=== PATIENT | female | born 1940 | race Caucasian/White ===

== ENCOUNTER 2016-12-29 10:34 | Outpatient (CLI) | payer MEDICARE ==
--- NOTE | 2016-12-30 10:13 | XRAY Report ---
CHEST, PA AND LATERAL: 12/29/2016 CLINICAL HISTORY: Preop. COMPARISON: 04/18/2013 FINDINGS: Bony thorax shows minimal anterior spurring in the thoracic spine. Mediastinum is not widened. Pulmonary parenchyma demonstrates findings suspicious for a nodule within the right upper lobe. Pote ntial nodule measures 1.3 cm. This was not evident on prior PA chest from 04/18/2013. Recommend con trast-enhanced CAT scan for further evaluation. Minimal scarring is once again noted in the right upper lobe. This is unchanged as compared to prece ding exam. IMPRESSION: 1. FINDINGS ARE SUSPICIOUS FOR INTERVAL APPEARANCE SINCE 04/18/2013 OF A 1.3 CM NODULE IN THE RIGHT UPPER LOBE. RECOMMEND A CONTRAST-ENHANCED CHEST CT FOR FURTHER EVALUATION. 2. MINIMAL SCARRING IS ONCE AGAIN NOTED IN THE RIGHT UPPER LOBE, UNCHANGED. COMMENT: Patient's physician, Dr. Espino, was notified of the above findings and recommendations by Estela Wilson on 12/30/2016 at 10 a.m. JOB #: [id number] EXT JOB #:[id number]
== END 2016-12-29 10:35 | disposition home or self-care (01) ==
LOC: DI.N 10:34
PROVIDERS: ATTEND Internal Medicine
DX: R91.1 Solitary pulmonary nodule (principal); J98.4 Other disorders of lung
CPT/HCPCS: 71020

== ENCOUNTER 2017-01-11 11:06 | Outpatient (CLI) | payer MEDICARE ==
[2017-01-11] MEDS ORDERED: IOPAMIDOL-300 100 ML VIAL IVP ONE (11:38)
--- NOTE | 2017-01-11 14:55 | CT Report ---
CT CHEST WITH CONTRAST: 01/11/2017 CLINICAL INDICATION: Possible right pulmonary nodule on plain film. TECHNIQUE: Axial CT images of the chest were obtained with 100 mL Isovue-300 intravenously. COMPARISON: Chest x-ray 12/29/2016. FINDINGS: The heart and great vessels demonstrate mild atherosclerotic calcifications. No hilar or mediastinal lymphadenopathy is present. The lungs demonstrate minimal linear atelectasis at the base s. No pulmonary nodule or mass lesion is present. No pleural effusion or pneumothorax is seen. Oss eous structures demonstrate degenerative changes. Limited evaluation of upper abdominal structures d emonstrates normal adrenal glands. Diffuse fatty infiltration of the liver is noted. IMPRESSION: NO EVIDENCE OF PULMONARY NODULE OR MASS LESION. In accordance with CT protocol optimization, one or more of the following dose reduction techniques w ere utilized for this exam: automated exposure control, adjustment of mA and/or KV based on patient size, or use of iterative reconstructive technique. JOB #: [id number] EXT JOB #:[id number]
== END 2017-01-11 11:07 | disposition home or self-care (01) ==
LOC: DI 11:06
PROVIDERS: ATTEND Internal Medicine
DX: R91.8 Other nonspecific abnormal finding of lung field (principal)
CPT/HCPCS: 71260; Q9967

== ENCOUNTER 2017-02-14 06:01 | Inpatient (IN) | payer MEDICARE ==
[2017-02-14] MEDS ORDERED: ceFAZolin 2 GM/50 ML 50 ML IV ONE (06:44)
[2017-02-14] MEDS ORDERED: LACTATED RINGERS 1,000 ML IV ONE ×2 (06:55→08:47)
[2017-02-14 07:55] LABS: BASOPHILS % (AUTO) 0.5 %; EOSINOPHILS # (AUTO) 0.1 10^3/uL (0.0-0.7); EOSINOPHILS % (AUTO) 1.8 %; HCT - HEMATOCRIT 36.2 % (37.0-47.0); HGB - HEMOGLOBIN 12.2 g/dL (12.0-16.0); LYMPHOCYTES % (AUTO) 38.1 %; MEAN CORPUSCULAR HEMOGLOBIN 28.2 pg (27.0-31.0); MEAN CORPUSCULAR HGB CONC 33.7 g/dL (32.0-36.0); MEAN CORPUSCULAR VOLUME 83.5 fL (81.0-99.0); MEAN PLATELET VOLUME 7.1 fL (7.9-10.8); MONOCYTES # (AUTO) 0.6 10^3/uL (0.0-1.0); MONOCYTES % (AUTO) 7.8 %; NEUTROPHILS % (AUTO) 51.8 %; RED BLOOD COUNT 4.34 10^6/uL (4.20-5.40); RED CELL DISTRIBUTION WIDTH 15.2 % (12.0-15.0); UNCORRECTED WHITE BLOOD COUNT 7.8 x10^3/uL; WHITE BLOOD COUNT 7.8 x10^3/uL (4.8-10.8)
[2017-02-14] MEDS ORDERED: fentaNYL 100 MCG/2 ML VIAL IVP ONE (08:30)
[2017-02-14] MEDS ORDERED: ACETAMINOPHEN 1,000 MG/100 ML VIAL IV ONE (08:30)
[2017-02-14] MEDS ORDERED: PROPOFOL 200 MG/20 ML VIAL IVP ONE (08:30)
[2017-02-14] MEDS ORDERED: LIDOCAINE-PF 2% 10 ML AMP SUBQ ONE (08:30)
[2017-02-14] MEDS ORDERED: MORPHINE PF 5 MG/10 ML AMP EP ONE (08:30)
[2017-02-14] MEDS ORDERED: MIDAZOLAM 2 MG/2 ML VIAL IVP ONE (08:30)
[2017-02-14] MEDS ORDERED: METOPROLOL 5 MG/5 ML VIAL IVP ONE (08:30)
[2017-02-14] MEDS ORDERED: TRANEXAMIC ACID 1,000 MG/10 ML VIAL IV ONE (08:30)
[2017-02-14] MEDS ORDERED: EPINEPHrine 1 MG/ML AMP IVP ONE ×2 (09:36→10:50)
[2017-02-14] MEDS ORDERED: MORPHINE PF 5 MG/10 ML AMP SUBQ ONE ×2 (09:36→10:50)
[2017-02-14] MEDS ORDERED: ROPIVACAINE 0.2% PF 20 ML AMPULE SUBQ ONE ×2 (09:36→10:50)
[2017-02-14] MEDS ORDERED: KETOROLAC 15 MG/ML VIAL IVP ONE (09:36)
[2017-02-14] MEDS ORDERED: BUPIVACAINE 0.5%-EPI 1:200000 PF 30 ML VIAL SUBQ ONE ×2 (09:37→11:38)
[2017-02-14] MEDS ORDERED: KETOROLAC 30 MG/ML VIAL IVP ONE (10:50)
[2017-02-14] MEDS ORDERED: BISACODYL 5 MG TABLET PO PRN (11:54)
[2017-02-14] MEDS ORDERED: oxyCOD/ACETAMIN 5 MG/325 MG TABLET PO PRN (11:54)
[2017-02-14] MEDS ORDERED: ACETAMINOPHEN 325 MG TABLET PO PRN (11:54)
[2017-02-14] MEDS ORDERED: PROCHLORPERAZINE 10 MG/2 ML VIAL IVP PRN (11:54)
[2017-02-14] MEDS ORDERED: diphenhydrAMINE 25 MG CAPSULE PO PRN (11:54)
[2017-02-14] MEDS ORDERED: BISACODYL 10 MG SUPP PR PRN (11:54)
[2017-02-14] MEDS ORDERED: DOCUSATE SODIUM 100 MG CAPSULE PO PRN (11:54)
[2017-02-14] MEDS ORDERED: diphenhydrAMINE INJ 50 MG/ML VIAL IVP PRN (11:54)
[2017-02-14] MEDS ORDERED: ACETAMINOPHEN 1,000 MG/100 ML 100 ML IV PRN (11:54)
[2017-02-14] MEDS ORDERED: SENNA 8.6 MG TABLET PO PRN (11:54)
--- NOTE | 2017-02-14 12:09 | OPERATIVE REPORT ---
Operative Report - General Admit Date: 02/14/17 Procedure Date: 02/14/17 Planned Procedure: Left Total Knee Arthroplasty Pre-Op Diagnosis: Bilateral Knee Osteoarthritis Post Op Diagnosis: Same - Procedure Note Primary Surgeon: Royce Clifton MD Anesthesia Provider: ZEENAT Leos Anesthesia Technique: Local, Moderate sedation, Spinal Pathology: Same Estimated Blood Loss (in cc): 50 Complications: None. - Other Other Information/Narrative: Implants: Jon Persona Knee Size 8 Narrow Femoral Component Size E PS Tibial Tray Tibial Insert, PS, UHMWPE, Size E x 10 mm. Patella COmponent, UHMWPE, 9x38 mm. Fluids: 1700 mL LR Disposition: PACU >> MedSurg Condition: Stable.
[2017-02-14] MEDS: SODIUM CHLORIDE 0.45% 1,000 ML IV SCH ×2 (13:38→23:43)
--- NOTE | 2017-02-14 14:00 | XRAY Report ---
TWO-VIEW LEFT KNEE: 02/14/2017 CLINICAL INDICATION: Status post left total knee replacement. FINDINGS: Frontal and lateral views of the left knee are compared to previous films of 02/27/2013 an d 11/30/2016. There is a left total knee replacement in place. Subcutaneous gas and small effusion are present. T here is no evidence of acute fracture or hardware complication. IMPRESSION: EXPECTED POSTOPERATIVE APPEARANCE OF LEFT KNEE REPLACEMENT. JOB #: [id number] EXT JOB #:[id number]
[2017-02-14 14:08] LABS: BASOPHILS % (AUTO) 0.3 %; EOSINOPHILS % (AUTO) 0.4 %; HCT - HEMATOCRIT 35.5 % (37.0-47.0); HGB - HEMOGLOBIN 11.9 g/dL (12.0-16.0); LYMPHOCYTES # (AUTO) 1.7 10^3/uL (1.5-3.5); LYMPHOCYTES % (AUTO) 16.8 %; MEAN CORPUSCULAR HEMOGLOBIN 28.2 pg (27.0-31.0); MEAN CORPUSCULAR HGB CONC 33.6 g/dL (32.0-36.0); MEAN CORPUSCULAR VOLUME 83.8 fL (81.0-99.0); MEAN PLATELET VOLUME 6.9 fL (7.9-10.8); MONOCYTES # (AUTO) 0.6 10^3/uL (0.0-1.0); NEUTROPHILS # (AUTO) 7.9 10^3/uL (1.5-6.6); NEUTROPHILS % (AUTO) 76.5 %; NUCLEATED RED BLOOD CELLS AUTO 0.1 /100WBC; RED BLOOD COUNT 4.23 10^6/uL (4.20-5.40); RED CELL DISTRIBUTION WIDTH 14.8 % (12.0-15.0); UNCORRECTED WHITE BLOOD COUNT 10.3 x10^3/uL; WHITE BLOOD COUNT 10.3 x10^3/uL (4.8-10.8)
[2017-02-14] MEDS: ONDANSETRON 4 MG/2 ML VIAL IVP PRN ×2 (14:17→20:42)
[2017-02-14] MEDS: ceFAZolin 2 GM/50 ML 50 ML IV SCH (16:01)
--- NOTE | 2017-02-14 18:27 | PROVIDER PROGRESS NOTE ---
Subjective - Prog Note Date Prog Note Date: 02/14/17 Prog Note Time: 18:26 - Subjective Subjective: pt report no pain, no complaints. Objective - Vital Signs/Intake & Output Vital Signs: Vital Signs x48h Temp Pulse Pulse Resp BP Pulse Ox 02/14/17 16:15 36.3 C L 82 16 127/72 92 02/14/17 14:33 35.9 C L 74 16 128/72 95 02/14/17 13:24 35.8 C L 86 12 114/65 94 02/14/17 12:51 36.9 C 76 16 130/69 94 02/14/17 12:25 98 02/14/17 12:20 98 02/14/17 12:10 95 02/14/17 12:05 98 02/14/17 12:00 98 02/14/17 11:55 95 Intake & Output: Intake & Output 02/11/17 02/12/17 02/13/17 02/14/17 23:59 23:59 23:59 23:59 Intake Total 1150 Output Total 800 Balance 350 - Objective General Appearance: positive: No acute distress, Alert Eyes Bilateral: positive: Normal inspection, PERRL ENT: positive: ENT inspection nml, Pharynx nml, No signs of dehydration Neck: positive: Nml inspection, Trachea midline Respiratory: positive: Chest non-tender, No respiratory distress, Breath sounds nml Cardiovascular: positive: Regular rate & rhythm, No murmur, No gallop Peripheral Pulses: 2+ Radial (R), 2+ Radial (L), 2+ Dorsalis pedis (R), 2+ Dorsalis pedis (L) Abdomen: positive: Non-tender, Nml bowel sounds, No distention Back: positive: Nml inspection Skin: positive: Color nml, Warm Extremities: positive: Non-tender, Nml appearance Neurologic/Psychiatric: positive: Oriented x3, CN's nml (2-12), Motor nml, Sensation nml, Mood/affect nml - Lab Results Fish Bones: 02/14/17 14:03 Other Labs: Lab Results x24hrs 02/14/17 02/14/17 02/14/17 Range/Units 14:03 12:27 07:47 WBC 10.3 7.8 (4.8-10.8) x10^3/uL RBC 4.23 4.34 (4.20-5.40) 10^6/uL Hgb 11.9 L 12.2 (12.0-16.0) g/dL Hct 35.5 L 36.2 L (37.0-47.0) % MCV 83.8 83.5 (81.0-99.0) fL MCH 28.2 28.2 (27.0-31.0) pg MCHC 33.6 33.7 (32.0-36.0) g/dL RDW 14.8 15.2 H (12.0-15.0) % Plt Count 216 228 (130-450) 10^3/uL MPV 6.9 L 7.1 L (7.9-10.8) fL Neut # 7.9 H 4.0 (1.5-6.6) 10^3/uL Lymph # 1.7 3.0 (1.5-3.5) 10^3/uL [place] # 0.6 0.6 (0.0-1.0) 10^3/uL Eos # 0.0 0.1 (0.0-0.7) 10^3/uL Baso # 0.0 0.0 (0.0-0.1) 10^3/uL Absolute Nucleated RBC 0.01 0.00 x10^3/uL Nucleated RBCs 0.1 0.0 /100WBC POC Whole Bld Glucose 166 H (70 - 100) mg/dL 02/14/17 Range/Units 06:52 WBC (4.8-10.8) x10^3/uL RBC (4.20-5.40) 10^6/uL Hgb (12.0-16.0) g/dL Hct (37.0-47.0) % MCV (81.0-99.0) fL MCH (27.0-31.0) pg MCHC (32.0-36.0) g/dL RDW (12.0-15.0) % Plt Count (130-450) 10^3/uL MPV (7.9-10.8) fL Neut # (1.5-6.6) 10^3/uL Lymph # (1.5-3.5) 10^3/uL [place] # (0.0-1.0) 10^3/uL Eos # (0.0-0.7) 10^3/uL Baso # (0.0-0.1) 10^3/uL Absolute Nucleated RBC x10^3/uL Nucleated RBCs /100WBC POC Whole Bld Glucose 122 H (70 - 100) mg/dL Assessment/Plan - Problem List (1) Status post knee surgery Impression: interview pt, review vital ans lab test pt report no pain, PT and OT ordered slide scale ordered, D/C metformin order CBC, CMP serial
[2017-02-14 19:49] LABS: HEMOGLOBIN A1C 0.56 g/dL
[2017-02-14] MEDS: SODIUM CHLORIDE FLUSH 0.9% 10 ML SYRINGE IVP SCH (20:41)
[2017-02-14] MEDS: INSULIN ASPART 300 UNIT/3 ML PEN SUBQ SCH (20:41)
[2017-02-14] MEDS: ATORVASTATIN 10 MG TABLET PO SCH (21:13)
[2017-02-15] MEDS: ceFAZolin 2 GM/50 ML 50 ML IV SCH (00:36)
[2017-02-15] MEDS: SODIUM CHLORIDE FLUSH 0.9% 10 ML SYRINGE IVP SCH ×3 (04:42→17:47)
[2017-02-15 05:52] LABS: BASOPHILS % (AUTO) 0.3 %; EOSINOPHILS % (AUTO) 0.2 %; HCT - HEMATOCRIT 36.3 % (37.0-47.0); HGB - HEMOGLOBIN 12.2 g/dL (12.0-16.0); LYMPHOCYTES # (AUTO) 1.3 10^3/uL (1.5-3.5); LYMPHOCYTES % (AUTO) 11.8 %; MEAN CORPUSCULAR HEMOGLOBIN 28.5 pg (27.0-31.0); MEAN CORPUSCULAR HGB CONC 33.5 g/dL (32.0-36.0); MEAN CORPUSCULAR VOLUME 84.9 fL (81.0-99.0); MEAN PLATELET VOLUME 7.5 fL (7.9-10.8); MONOCYTES % (AUTO) 9.2 %; NEUTROPHILS # (AUTO) 8.7 10^3/uL (1.5-6.6); NEUTROPHILS % (AUTO) 78.5 %; NUCLEATED RED BLOOD CELLS AUTO 0.1 /100WBC; RED BLOOD COUNT 4.28 10^6/uL (4.20-5.40); RED CELL DISTRIBUTION WIDTH 14.7 % (12.0-15.0); UNCORRECTED WHITE BLOOD COUNT 11.1 x10^3/uL; WHITE BLOOD COUNT 11.1 x10^3/uL (4.8-10.8)
[2017-02-15 06:06] LABS: ALBUMIN/GLOBULIN RATIO 1.2 (1.0-2.2); BILIRUBIN,TOTAL 0.6 mg/dL (0.2-1.0); CALCIUM 8.4 mg/dL (8.5-10.3); CREATININE 0.6 mg/dL (0.4-1.0); POTASSIUM 3.7 mmol/L (3.5-5.0)
[2017-02-15] MEDS ORDERED: metFORMIN 500 MG TABLET PO SCH (08:00)
[2017-02-15] MEDS: INSULIN ASPART 300 UNIT/3 ML PEN SUBQ SCH ×4 (08:50→20:43)
[2017-02-15] MEDS ORDERED: ATENOLOL 25 MG TABLET PO SCH (09:00)
[2017-02-15] MEDS ORDERED: amLODIPine 5 MG TABLET PO SCH (09:00)
[2017-02-15] MEDS ORDERED: LIDOCAINE PATCH 5% TOP PRN (09:07)
--- NOTE | 2017-02-15 09:11 | PROVIDER PROGRESS NOTE ---
Subjective - Prog Note Date Prog Note Date: 02/15/17 Prog Note Time: 09:07 - Subjective Subjective: Patient sitting up in bed, awake, alert, no distress. She reports pain in the left knee, no radiation, aching. Her pain is fine is she "doesn't move at all" . Pain is 10/10 with movement. She is using percocet with relief. She is nervous about starting PT. She reports post-op nausea has resolved, taking PO without issue, not back to full appetite though. No LLAMAS, SOB, CP or abdominal pain. No BM yet since surgery. Current Medications - Current Medications Current Medications: Active Medications Acetaminophen (Tylenol) 1,000 mg PO TIDWM [facility] Amlodipine Besylate (Norvasc) 5 mg PO DAILY [facility] Atenolol (Tenormin) 100 mg PO DAILY [facility] Atorvastatin Calcium (Lipitor) 10 mg PO QPM [facility] Last Admin: 02/14/17 21:13 Dose: Not Given Bisacodyl (Dulcolax Supp) 10 mg [place] Q12H PRN PRN Reason: Constipation Bisacodyl (Dulcolax) 10 mg PO Q12H PRN PRN Reason: Constipation Calcium Carbonate/Glycine (Tums) 1,000 mg PO DAILY [facility] Cholecalciferol (Vitamin D3) 400 unit PO DAILY [facility] Diphenhydramine HCl (Benadryl) 25 mg PO Q6H PRN PRN Reason: ITCHING Diphenhydramine HCl (Benadryl Inj) 25 mg IVP Q6H PRN PRN Reason: ITCHING Docusate Sodium (Colace 100mg Capsule) 100 mg PO BID [facility] Enoxaparin Sodium (Lovenox) 40 mg SUBQ DAILY [facility] Hydrochlorothiazide (Hydrodiuril) 25 mg PO DAILY [facility] Acetaminophen (Ofirmev) 100 mls @ 400 mls/hr IV Q6HR PRN PRN Reason: PAIN Last Admin: 02/14/17 23:43 Dose: 400 mls/hr Insulin Aspart (Novolog) 1 - 5 unit SUBQ 0800,1200,1700,2100 [facility] PRN Reason: Protocol Last Admin: 02/15/17 08:50 Dose: Not Given Lidocaine (Lidoderm Patch) 1 patch TOP DAILY PRN PRN Reason: PAIN Magnesium Oxide (Mag Ox) 200 mg PO DAILYWM [facility] Non-Formulary Medication (Mirabegron [Myrbetriq]) 50 mg PO DAILY [facility] Vbbnr-3-Elgr Ethyl Esters (Lovaza) 1 gm PO DAILY [facility] Ondansetron HCl (Zofran Inj) 4 mg IVP Q6HR PRN PRN Reason: Nausea / Vomiting Last Admin: 02/14/17 20:42 Dose: 4 mg Oxycodone HCl (Roxicodone) 5 - 10 mg PO Q4HR PRN PRN Reason: PAIN Prochlorperazine Edisylate (Compazine Inj) 10 mg IVP Q6HR PRN PRN Reason: Nausea / Vomiting Last Admin: 02/14/17 16:12 Dose: 10 mg Senna (Senokot) 17.2 mg PO DAILY [facility] Sodium Chloride (Normal Saline Flush 0.9%) 10 ml IVP PRN PRN PRN Reason: NEEDED PER PROVIDER ORDERS Sodium Chloride (Normal Saline Flush 0.9%) 10 ml IVP Q8HR [facility] Last Admin: 02/15/17 04:42 Dose: Not Given Amlodipine Besylate 5 mg PO DAILY 02/01/17 Aspirin [Adult Low Dose Aspirin EC] 81 mg PO DAILY 02/01/17 Atenolol 100 mg PO DAILY 02/01/17 Calcium Carbonate/Vitamin D3 [Calcium 600-Vit D3 400 Tablet] 1 tab PO DAILY Cranberry Fruit Extract [Cranberry] 125 mg PO DAILY 02/01/17 Magnesium 250 mg PO DAILY 02/01/17 Mirabegron [Myrbetriq] 50 mg PO DAILY 02/01/17 [place]-3/Dha/Epa/Fish Oil [Fish Oil 1,000 mg Softgel] 1 cap PO DAILY 02/01/17 Simvastatin 20 mg PO QPM 02/01/17 metFORMIN [Glucophage] 500 mg PO DAILY 02/01/17 Hydrochlorothiazide [Hydrochlorothiazide] 25 mg PO DAILY 02/14/17 Objective - Vital Signs/Intake & Output Reviewed Vital Signs: Yes Vital Signs: Vital Signs x48h Temp Pulse Resp BP Pulse Ox 02/15/17 08:00 36.8 C 83 16 101/62 94 Intake & Output: Intake & Output 02/12/17 02/13/17 02/14/17 02/15/17 23:59 23:59 23:59 23:59 Intake Total 1250 1169 Output Total 1350 475 Balance -100 694 - Objective General Appearance: positive: No acute distress, Alert Eyes Bilateral: positive: Normal inspection ENT: positive: ENT inspection nml. negative: No signs of dehydration Respiratory: positive: Chest non-tender, No respiratory distress, Breath sounds nml. negative: Wheezes, Rales, Rhonchi Cardiovascular: positive: Regular rate & rhythm, No murmur. negative: Tachycardia Peripheral Pulses: 1+ Dorsalis pedis (R), 1+ Dorsalis pedis (L), 2+ Radial (R), 2+ Radial (L) Abdomen: positive: Non-tender (soft, obese). negative: Nml bowel sounds ( hypoactive), Guarding, Rebound Skin: positive: Color nml, Warm, Dry Extremities: positive: Other (Left leg wrapped with HIMA from thigh to foot). negative: Full ROM (LLE ROM limited by pain), Pedal edema Neurologic/Psychiatric: positive: Oriented x3, Sensation nml, Mood/affect nml. negative: Weakness - Lab Results Fish Bones: 02/15/17 05:34 02/15/17 05:34 Other Labs: Lab Results x24hrs 02/15/17 02/15/17 02/15/17 Range/Units 07:44 05:34 05:34 WBC 11.1 H (4.8-10.8) x10^3/uL RBC 4.28 (4.20-5.40) 10^6/uL Hgb 12.2 (12.0-16.0) g/dL Hct 36.3 L (37.0-47.0) % MCV 84.9 (81.0-99.0) fL MCH 28.5 (27.0-31.0) pg MCHC 33.5 (32.0-36.0) g/dL RDW 14.7 (12.0-15.0) % Plt Count 196 (130-450) 10^3/uL MPV 7.5 L (7.9-10.8) fL Neut # 8.7 H (1.5-6.6) 10^3/uL Lymph # 1.3 L (1.5-3.5) 10^3/uL [place] # 1.0 (0.0-1.0) 10^3/uL Eos # 0.0 (0.0-0.7) 10^3/uL Baso # 0.0 (0.0-0.1) 10^3/uL Absolute Nucleated RBC 0.01 x10^3/uL Nucleated RBCs 0.1 /100WBC Sodium 135 (135-145) mmol/L Potassium 3.7 (3.5-5.0) mmol/L Chloride 97 L (101-111) mmol/L Carbon Dioxide 29 (21-32) mmol/L Anion Gap 9.0 (6-13) BUN 14 (6-20) mg/dL Creatinine 0.6 (0.4-1.0) mg/dL Estimated GFR (MDRD) 97 (>89) Glucose 158 H (70-100) mg/dL POC Whole Bld Glucose 127 H (70 - 100) mg/dL Glycated Hemoglobin (4.6-6.2) % Estim Average Glucose (70-100) Calcium 8.4 L (8.5-10.3) mg/dL Total Bilirubin 0.6 (0.2-1.0) mg/dL AST 21 (10-42) IU/L ALT 19 (10-60) IU/L Alkaline Phosphatase 42 (42-121) IU/L Total Protein 6.0 L (6.7-8.2) g/dL Albumin 3.3 (3.2-5.5) g/dL Globulin 2.7 (2.1-4.2) g/dL Albumin/Globulin Ratio 1.2 (1.0-2.2) 02/14/17 02/14/17 02/14/17 Range/Units 20:12 14:03 14:03 WBC 10.3 (4.8-10.8) x10^3/uL RBC 4.23 (4.20-5.40) 10^6/uL Hgb 11.9 L (12.0-16.0) g/dL Hct 35.5 L (37.0-47.0) % MCV 83.8 (81.0-99.0) fL MCH 28.2 (27.0-31.0) pg MCHC 33.6 (32.0-36.0) g/dL RDW 14.8 (12.0-15.0) % Plt Count 216 (130-450) 10^3/uL MPV 6.9 L (7.9-10.8) fL Neut # 7.9 H (1.5-6.6) 10^3/uL Lymph # 1.7 (1.5-3.5) 10^3/uL [place] # 0.6 (0.0-1.0) 10^3/uL Eos # 0.0 (0.0-0.7) 10^3/uL Baso # 0.0 (0.0-0.1) 10^3/uL Absolute Nucleated RBC 0.01 x10^3/uL Nucleated RBCs 0.1 /100WBC Sodium (135-145) mmol/L Potassium (3.5-5.0) mmol/L Chloride (101-111) mmol/L Carbon Dioxide (21-32) mmol/L Anion Gap (6-13) BUN (6-20) mg/dL Creatinine (0.4-1.0) mg/dL Estimated GFR (MDRD) (>89) Glucose (70-100) mg/dL POC Whole Bld Glucose 117 H (70 - 100) mg/dL Glycated Hemoglobin 6.3 H (4.6-6.2) % Estim Average Glucose 134 H (70-100) Calcium (8.5-10.3) mg/dL Total Bilirubin (0.2-1.0) mg/dL AST (10-42) IU/L ALT (10-60) IU/L Alkaline Phosphatase (42-121) IU/L Total Protein (6.7-8.2) g/dL Albumin (3.2-5.5) g/dL Globulin (2.1-4.2) g/dL Albumin/Globulin Ratio (1.0-2.2) 02/14/17 Range/Units 12:27 WBC (4.8-10.8) x10^3/uL RBC (4.20-5.40) 10^6/uL Hgb (12.0-16.0) g/dL Hct (37.0-47.0) % MCV (81.0-99.0) fL MCH (27.0-31.0) pg MCHC (32.0-36.0) g/dL RDW (12.0-15.0) % Plt Count (130-450) 10^3/uL MPV (7.9-10.8) fL Neut # (1.5-6.6) 10^3/uL Lymph # (1.5-3.5) 10^3/uL [place] # (0.0-1.0) 10^3/uL Eos # (0.0-0.7) 10^3/uL Baso # (0.0-0.1) 10^3/uL Absolute Nucleated RBC x10^3/uL Nucleated RBCs /100WBC Sodium (135-145) mmol/L Potassium (3.5-5.0) mmol/L Chloride (101-111) mmol/L Carbon Dioxide (21-32) mmol/L Anion Gap (6-13) BUN (6-20) mg/dL Creatinine (0.4-1.0) mg/dL Estimated GFR (MDRD) (>89) Glucose (70-100) mg/dL POC Whole Bld Glucose 166 H (70 - 100) mg/dL Glycated Hemoglobin (4.6-6.2) % Estim Average Glucose (70-100) Calcium (8.5-10.3) mg/dL Total Bilirubin (0.2-1.0) mg/dL AST (10-42) IU/L ALT (10-60) IU/L Alkaline Phosphatase (42-121) IU/L Total Protein (6.7-8.2) g/dL Albumin (3.2-5.5) g/dL Globulin (2.1-4.2) g/dL Albumin/Globulin Ratio (1.0-2.2) Assessment/Plan - Problem List (1) Status post knee surgery Impression: Bilateral knee arthritis, underwent elective replacement. No post-op anemia. Experiencing pain with ROM of L knee, distal CMS intact. -PT eval today -Lovenox for DVT prophylaxis -Pain control: tylenol TID, lidoderm patch daily, prn oxycodone for breakthrough pain -Bowel regimen: colace bid and senna qhs until 1st BM, then as needed Patient plans to go home with son and have outpatient PT (2) T2DM (type 2 diabetes mellitus) Impression: Hx of T2DM, last A1c 6.3%. No neuropathy or nephropathy. Currently euglycemic. Holding PO metformin. -Low dose SSI -Carb control diet (3) Hypertension Impression: Hx of HTN, on norvasc. Normotensive, post-op. -Continue norvasc and atenolol with parameters -Continue HCTZ -Monitor BP routinely and titrate meds as needed (4) Hyperlipidemia Impression: Hx of HLD, associated with T2DM. No previous lipid panel available to review. -Continue statin and lovaza -Heart healthy diet encouraged DC PLANNING: PT eval today, then home tomorrow or SNF Tuesday based on PT reccs
[2017-02-15] MEDS: ENOXAPARIN 40 MG/0.4 ML SYRINGE SUBQ SCH (10:01)
[2017-02-15] MEDS: CALCIUM CARBONATE CHEW 500 MG TABLET PO SCH (10:02)
[2017-02-15] MEDS: NON FORMULARY MED (Mirabegron [Myrbetriq] 50 MG) PO SCH (10:02)
[2017-02-15] MEDS: DOCUSATE SODIUM 100 MG CAPSULE PO SCH ×2 (10:02→20:43)
[2017-02-15] MEDS: MAGNESIUM OXIDE 400 MG TABLET PO SCH (10:03)
[2017-02-15] MEDS: CHOLECALCIFEROL 400 UNIT TABLET PO SCH (10:03)
[2017-02-15] MEDS: hydroCHLOROthiazide 25 MG TABLET PO SCH (10:03)
[2017-02-15] MEDS: OMEGA-3 ACID ETHYL ESTERS 1 GM CAPSULE PO SCH (10:03)
[2017-02-15] MEDS: oxyCODONE 5 MG TABLET PO PRN ×3 (10:15→20:42)
[2017-02-15] MEDS: ACETAMINOPHEN 500 MG TABLET PO SCH ×2 (11:53→16:52)
[2017-02-15] MEDS ORDERED: KETOROLAC 15 MG/ML VIAL IVP PRN (12:24)
[2017-02-15] MEDS: ATORVASTATIN 10 MG TABLET PO SCH (20:43)
[2017-02-16] MEDS: SODIUM CHLORIDE FLUSH 0.9% 10 ML SYRINGE IVP PRN ×2 (00:36→15:06)
[2017-02-16] MEDS: oxyCODONE 5 MG TABLET PO PRN ×3 (00:44→20:05)
[2017-02-16 06:02] LABS: HGB - HEMOGLOBIN 12.3 g/dL (12.0-16.0); MEAN PLATELET VOLUME 7.5 fL (7.9-10.8); NEUTROPHILS # (AUTO) 9.4 10^3/uL (1.5-6.6)
[2017-02-16 06:06] LABS: BASOPHILS % (AUTO) 0.3 %; HCT - HEMATOCRIT 36.8 % (37.0-47.0); LYMPHOCYTES # (AUTO) 1.5 10^3/uL (1.5-3.5); MEAN CORPUSCULAR HGB CONC 33.4 g/dL (32.0-36.0); MEAN CORPUSCULAR VOLUME 83.9 fL (81.0-99.0); MONOCYTES # (AUTO) 1.3 10^3/uL (0.0-1.0); MONOCYTES % (AUTO) 10.8 %; NEUTROPHILS % (AUTO) 76.9 %; RED BLOOD COUNT 4.39 10^6/uL (4.20-5.40); UNCORRECTED WHITE BLOOD COUNT 12.3 x10^3/uL; WHITE BLOOD COUNT 12.3 x10^3/uL (4.8-10.8)
[2017-02-16 06:10] LABS: ALBUMIN/GLOBULIN RATIO 1.1 (1.0-2.2); BILIRUBIN,TOTAL 0.8 mg/dL (0.2-1.0); CALCIUM 8.9 mg/dL (8.5-10.3); CREATININE 0.6 mg/dL (0.4-1.0); POTASSIUM 3.4 mmol/L (3.5-5.0); TOTAL PROTEIN 6.6 g/dL (6.7-8.2)
[2017-02-16] MEDS: SODIUM CHLORIDE FLUSH 0.9% 10 ML SYRINGE IVP SCH ×3 (06:18→22:19)
[2017-02-16] MEDS: ENOXAPARIN 40 MG/0.4 ML SYRINGE SUBQ SCH (09:02)
[2017-02-16] MEDS: INSULIN ASPART 300 UNIT/3 ML PEN SUBQ SCH ×4 (09:02→20:54)
[2017-02-16] MEDS: CALCIUM CARBONATE CHEW 500 MG TABLET PO SCH (09:03)
[2017-02-16] MEDS: ACETAMINOPHEN 500 MG TABLET PO SCH ×3 (09:03→17:05)
[2017-02-16] MEDS: CHOLECALCIFEROL 400 UNIT TABLET PO SCH (09:03)
[2017-02-16] MEDS: MAGNESIUM OXIDE 400 MG TABLET PO SCH (09:03)
[2017-02-16] MEDS: OMEGA-3 ACID ETHYL ESTERS 1 GM CAPSULE PO SCH (09:03)
[2017-02-16] MEDS: amLODIPine 5 MG TABLET PO SCH (09:03)
[2017-02-16] MEDS: ATENOLOL 25 MG TABLET PO SCH (09:04)
[2017-02-16] MEDS: DOCUSATE SODIUM 100 MG CAPSULE PO SCH ×2 (09:04→20:05)
[2017-02-16] MEDS: hydroCHLOROthiazide 25 MG TABLET PO SCH (09:04)
[2017-02-16] MEDS: NON FORMULARY MED (Mirabegron [Myrbetriq] 50 MG) PO SCH (09:05)
[2017-02-16] MEDS: SENNA 8.6 MG TABLET PO SCH (09:12)
--- NOTE | 2017-02-16 10:16 | PROVIDER PROGRESS NOTE ---
Subjective - Prog Note Date Prog Note Date: 02/16/17 Prog Note Time: 10:15 - Subjective Subjective: Patient resting in bed, drowsy but easily arouses. She complains of severe pain with movement , resolves almost immediately with rest, no pain at rest. No chest pain, SOB, or abdominal pain. No BM since surgery. Reports she was only able to sit on the side of the bed - PT says this was limited by her nausea not the pain. Current Medications - Current Medications Current Medications: Active Medications Acetaminophen (Tylenol) 1,000 mg PO TIDWM [facility] Last Admin: 02/16/17 09:03 Dose: 1,000 mg Amlodipine Besylate (Norvasc) 5 mg PO DAILY [facility] Last Admin: 02/16/17 09:03 Dose: 5 mg Atenolol (Tenormin) 100 mg PO DAILY [facility] Last Admin: 02/16/17 09:04 Dose: 100 mg Atorvastatin Calcium (Lipitor) 10 mg PO QPM [facility] Last Admin: 02/15/17 20:43 Dose: 10 mg Bisacodyl (Dulcolax Supp) 10 mg [place] Q12H PRN PRN Reason: Constipation Bisacodyl (Dulcolax) 10 mg PO Q12H PRN PRN Reason: Constipation Calcium Carbonate/Glycine (Tums) 1,000 mg PO DAILY [facility] Last Admin: 02/16/17 09:03 Dose: 1,000 mg Cholecalciferol (Vitamin D3) 400 unit PO DAILY [facility] Last Admin: 02/16/17 09:03 Dose: 400 unit Diphenhydramine HCl (Benadryl) 25 mg PO Q6H PRN PRN Reason: ITCHING Diphenhydramine HCl (Benadryl Inj) 25 mg IVP Q6H PRN PRN Reason: ITCHING Docusate Sodium (Colace 100mg Capsule) 100 mg PO BID [facility] Last Admin: 02/16/17 09:04 Dose: 100 mg Enoxaparin Sodium (Lovenox) 40 mg SUBQ DAILY [facility] Last Admin: 02/16/17 09:02 Dose: 40 mg Hydrochlorothiazide (Hydrodiuril) 25 mg PO DAILY [facility] Last Admin: 02/16/17 09:04 Dose: 25 mg Insulin Aspart (Novolog) 1 - 5 unit SUBQ 0800,1200,1700,2100 [facility] PRN Reason: Protocol Last Admin: 02/16/17 09:02 Dose: 1 unit Ketorolac Tromethamine (Toradol Inj) 30 mg IVP Q6HR PRN PRN Reason: PAIN Stop: 02/20/17 12:23 Last Admin: 02/15/17 17:47 Dose: 30 mg Lidocaine (Lidoderm Patch) 1 patch TOP DAILY PRN PRN Reason: PAIN Magnesium Oxide (Mag Ox) 200 mg PO DAILYWM [facility] Last Admin: 02/16/17 09:03 Dose: 200 mg Non-Formulary Medication (Mirabegron [Myrbetriq]) 50 mg PO DAILY [facility] Last Admin: 02/16/17 09:05 Dose: Not Given Fazar-6-Btmy Ethyl Esters (Lovaza) 1 gm PO DAILY [facility] Last Admin: 02/16/17 09:03 Dose: 1 gm Ondansetron HCl (Zofran Inj) 4 mg IVP Q6HR PRN PRN Reason: Nausea / Vomiting Last Admin: 02/14/17 20:42 Dose: 4 mg Oxycodone HCl (Roxicodone) 5 - 10 mg PO Q4HR PRN PRN Reason: PAIN Last Admin: 02/16/17 09:05 Dose: 10 mg Prochlorperazine Edisylate (Compazine Inj) 10 mg IVP Q6HR PRN PRN Reason: Nausea / Vomiting Last Admin: 02/14/17 16:12 Dose: 10 mg Senna (Senokot) 17.2 mg PO DAILY [facility] Last Admin: 02/16/17 09:12 Dose: 17.2 mg Sodium Chloride (Normal Saline Flush 0.9%) 10 ml IVP PRN PRN PRN Reason: NEEDED PER PROVIDER ORDERS Last Admin: 02/16/17 00:36 Dose: 10 ml Sodium Chloride (Normal Saline Flush 0.9%) 10 ml IVP Q8HR [facility] Last Admin: 02/16/17 06:18 Dose: 10 ml Amlodipine Besylate 5 mg PO DAILY 02/01/17 Aspirin [Adult Low Dose Aspirin EC] 81 mg PO DAILY 02/01/17 Atenolol 100 mg PO DAILY 02/01/17 Calcium Carbonate/Vitamin D3 [Calcium 600-Vit D3 400 Tablet] 1 tab PO DAILY Cranberry Fruit Extract [Cranberry] 125 mg PO DAILY 02/01/17 Magnesium 250 mg PO DAILY 02/01/17 Mirabegron [Myrbetriq] 50 mg PO DAILY 02/01/17 [place]-3/Dha/Epa/Fish Oil [Fish Oil 1,000 mg Softgel] 1 cap PO DAILY 02/01/17 Simvastatin 20 mg PO QPM 02/01/17 metFORMIN [Glucophage] 500 mg PO DAILY 02/01/17 Hydrochlorothiazide [Hydrochlorothiazide] 25 mg PO DAILY 02/14/17 Objective - Vital Signs/Intake & Output Reviewed Vital Signs: Yes Vital Signs: Vital Signs x48h Temp Pulse Resp BP Pulse Ox 02/16/17 08:00 37.1 C 93 16 151/88 H 95 02/16/17 04:06 36.9 C 88 18 156/75 H 94 Intake & Output: Intake & Output 02/13/17 02/14/17 02/15/17 02/16/17 23:59 23:59 23:59 23:59 Intake Total 1250 1891 460 Output Total 1350 625 Balance -100 1266 460 - Objective General Appearance: positive: No acute distress, Alert ENT: positive: Pharynx nml Neck: positive: No JVD Respiratory: positive: Chest non-tender, No respiratory distress, Breath sounds nml (clear but diminsihed bilaterally) Cardiovascular: positive: Regular rate & rhythm Peripheral Pulses: 1+ Dorsalis pedis (R), 1+ Dorsalis pedis (L), 2+ Radial (R), 2+ Radial (L) Abdomen: positive: Non-tender, No distention. negative: Nml bowel sounds ( hypoactive bowel sounds), Guarding, Rebound Back: positive: Nml inspection Skin: positive: Color nml, No rash, Warm, Dry Extremities: positive: Other (Moving extermities appropriately, LLE wrapped with HIMA from thigh to foot). negative: Pedal edema, Calf tenderness Neurologic/Psychiatric: positive: Oriented x3, Motor nml, Mood/affect nml - Lab Results Fish Bones: 02/16/17 05:33 02/16/17 05:33 Other Labs: Lab Results x24hrs 02/16/17 02/16/17 02/16/17 Range/Units 08:02 05:33 05:33 WBC 12.3 H (4.8-10.8) x10^3/uL RBC 4.39 (4.20-5.40) 10^6/uL Hgb 12.3 (12.0-16.0) g/dL Hct 36.8 L (37.0-47.0) % MCV 83.9 (81.0-99.0) fL MCH 28.0 (27.0-31.0) pg MCHC 33.4 (32.0-36.0) g/dL RDW 15.0 (12.0-15.0) % Plt Count 204 (130-450) 10^3/uL MPV 7.5 L (7.9-10.8) fL Neut # 9.4 H (1.5-6.6) 10^3/uL Lymph # 1.5 (1.5-3.5) 10^3/uL [place] # 1.3 H (0.0-1.0) 10^3/uL Eos # 0.0 (0.0-0.7) 10^3/uL Baso # 0.0 (0.0-0.1) 10^3/uL Absolute Nucleated RBC 0.00 x10^3/uL Nucleated RBCs 0.0 /100WBC Sodium 133 L (135-145) mmol/L Potassium 3.4 L (3.5-5.0) mmol/L Chloride 93 L (101-111) mmol/L Carbon Dioxide 30 (21-32) mmol/L Anion Gap 10.0 (6-13) BUN 10 (6-20) mg/dL Creatinine 0.6 (0.4-1.0) mg/dL Estimated GFR (MDRD) 97 (>89) Glucose 156 H (70-100) mg/dL POC Whole Bld Glucose 157 H (70 - 100) mg/dL Calcium 8.9 (8.5-10.3) mg/dL Total Bilirubin 0.8 (0.2-1.0) mg/dL AST 19 (10-42) IU/L ALT 16 (10-60) IU/L Alkaline Phosphatase 47 (42-121) IU/L Total Protein 6.6 L (6.7-8.2) g/dL Albumin 3.4 (3.2-5.5) g/dL Globulin 3.2 (2.1-4.2) g/dL Albumin/Globulin Ratio 1.1 (1.0-2.2) Assessment/Plan - Problem List (1) Status post knee surgery Impression: Bilateral knee arthritis, underwent elective replacement on 02/14. No post-op anemia. Experiencing pain with ROM of L knee resolves with rest, distal CMS intact. Poor appetite per nursing -PT/OT again today to mobilize OOB -Lovenox for DVT prophylaxis -Pain control: tylenol TID, lidoderm patch daily, prn toradol and oxycodone for breakthrough pain -Bowel regimen: colace bid and senna qhs until 1st BM, then as needed -Encourage PO intake * Postoperative leukocytosis WBC 7.8 pre-op, trending up slowly since surgery - now 12.3. No fever or meghana sign of infection. Did have gusman in the ashley-operative period increasing risk for UTI. Decreased deep breathing and pain increase risk for atelectasis. Surgical sight remains wrapped with HIMA wrap. May be reactive to surgery. -UA to rule out CAUTI -CXR to differentiate atelectasis from HCAP -ICS Q2hr -Trend labs (2) T2DM (type 2 diabetes mellitus) Impression: Hx of T2DM, last A1c 6.3%. No neuropathy or nephropathy. BG controlled, AM BG usually in 150s, then normal throughtout the day. -Continue low dose SSI -Carb control diet (3) Hypertension Impression: Hx of HTN, on CCB, BB and HCTZ at home. Normotensive post-op, then trending up now in the 140-150s. I&O with +12oo fluid balance yesterday and now with low Na and CL - concern for hypervolemia. -Continue norvasc and atenolol with parameters -Continue HCTZ -Lasix 20mg IV x1 dose + PO KCl -Monitor BP routinely and titrate meds as needed (4) Hyperlipidemia Impression: Hx of HLD, associated with T2DM. No previous lipid panel available to review. -Continue statin and lovaza -Heart healthy diet encouraged DC PLANNING: PT to see again today to mobilize OOB.Patient plans to go home with son and have outpatient PT
[2017-02-16] MEDS: KETOROLAC 15 MG/ML VIAL IVP PRN ×2 (10:42→20:05)
[2017-02-16] MEDS ORDERED: FUROSEMIDE 20 MG/2 ML VIAL IVP ONE ×2 (11:15→14:15)
[2017-02-16] MEDS: POTASSIUM CHLORIDE 20 MEQ TABLET PO SCH ×2 (12:27→16:03)
--- NOTE | 2017-02-16 14:54 | PROVIDER PROGRESS NOTE ---
Subjective - Prog Note Date Prog Note Date: 02/15/17 Prog Note Time: 12:15 - Subjective Pt reports feeling: Improved (been well-controlled. Patient has not yet been up with physical therapy. Karishma Tovar) Objective - Vital Signs/Intake & Output Reviewed Vital Signs: Yes Vital Signs: Vital Signs x48h Temp Pulse Resp BP Pulse Ox 02/16/17 12:00 36.5 C 58 L 16 119/78 92 02/16/17 08:00 37.1 C 93 16 151/88 H 95 Intake & Output: Intake & Output 02/13/17 02/14/17 02/15/17 02/16/17 23:59 23:59 23:59 23:59 Intake Total 1250 1891 830 Output Total 1350 625 Balance -100 1266 830 - Objective General Appearance: positive: No acute distress, Alert Eyes Bilateral: positive: Normal inspection ENT: positive: ENT inspection nml Neck: positive: Nml inspection Respiratory: positive: No respiratory distress, Breath sounds nml Cardiovascular: positive: Regular rate & rhythm Peripheral Pulses: 2+ Dorsalis pedis (L), 2+ Posterior tibialis (L) Abdomen: positive: Non-tender, Nml bowel sounds, No distention. negative: Guarding Back: positive: Nml inspection Skin: positive: Color nml, No rash, Warm, Dry Extremities: positive: Nml appearance, Other (dressing intact to left knee without bleeding through.). negative: Pedal edema, Calf tenderness, Geoffrey's sign/cords Neurologic/Psychiatric: positive: Oriented x3, Motor nml, Sensation nml, Mood/ affect nml - Lab Results Fish Bones: 02/16/17 05:33 02/16/17 05:33 Other Labs: Lab Results x24hrs 02/16/17 02/16/17 02/16/17 Range/Units 11:55 08:02 05:33 WBC (4.8-10.8) x10^3/uL RBC (4.20-5.40) 10^6/uL Hgb (12.0-16.0) g/dL Hct (37.0-47.0) % MCV (81.0-99.0) fL MCH (27.0-31.0) pg MCHC (32.0-36.0) g/dL RDW (12.0-15.0) % Plt Count (130-450) 10^3/uL MPV (7.9-10.8) fL Neut # (1.5-6.6) 10^3/uL Lymph # (1.5-3.5) 10^3/uL [place] # (0.0-1.0) 10^3/uL Eos # (0.0-0.7) 10^3/uL Baso # (0.0-0.1) 10^3/uL Absolute Nucleated RBC x10^3/uL Nucleated RBCs /100WBC Sodium 133 L (135-145) mmol/L Potassium 3.4 L (3.5-5.0) mmol/L Chloride 93 L (101-111) mmol/L Carbon Dioxide 30 (21-32) mmol/L Anion Gap 10.0 (6-13) BUN 10 (6-20) mg/dL Creatinine 0.6 (0.4-1.0) mg/dL Estimated GFR (MDRD) 97 (>89) Glucose 156 H (70-100) mg/dL POC Whole Bld Glucose 178 H 157 H (70 - 100) mg/dL Calcium 8.9 (8.5-10.3) mg/dL Total Bilirubin 0.8 (0.2-1.0) mg/dL AST 19 (10-42) IU/L ALT 16 (10-60) IU/L Alkaline Phosphatase 47 (42-121) IU/L Total Protein 6.6 L (6.7-8.2) g/dL Albumin 3.4 (3.2-5.5) g/dL Globulin 3.2 (2.1-4.2) g/dL Albumin/Globulin Ratio 1.1 (1.0-2.2) 02/16/17 Range/Units 05:33 WBC 12.3 H (4.8-10.8) x10^3/uL RBC 4.39 (4.20-5.40) 10^6/uL Hgb 12.3 (12.0-16.0) g/dL Hct 36.8 L (37.0-47.0) % MCV 83.9 (81.0-99.0) fL MCH 28.0 (27.0-31.0) pg MCHC 33.4 (32.0-36.0) g/dL RDW 15.0 (12.0-15.0) % Plt Count 204 (130-450) 10^3/uL MPV 7.5 L (7.9-10.8) fL Neut # 9.4 H (1.5-6.6) 10^3/uL Lymph # 1.5 (1.5-3.5) 10^3/uL [place] # 1.3 H (0.0-1.0) 10^3/uL Eos # 0.0 (0.0-0.7) 10^3/uL Baso # 0.0 (0.0-0.1) 10^3/uL Absolute Nucleated RBC 0.00 x10^3/uL Nucleated RBCs 0.0 /100WBC Sodium (135-145) mmol/L Potassium (3.5-5.0) mmol/L Chloride (101-111) mmol/L Carbon Dioxide (21-32) mmol/L Anion Gap (6-13) BUN (6-20) mg/dL Creatinine (0.4-1.0) mg/dL Estimated GFR (MDRD) (>89) Glucose (70-100) mg/dL POC Whole Bld Glucose (70 - 100) mg/dL Calcium (8.5-10.3) mg/dL Total Bilirubin (0.2-1.0) mg/dL AST (10-42) IU/L ALT (10-60) IU/L Alkaline Phosphatase (42-121) IU/L Total Protein (6.7-8.2) g/dL Albumin (3.2-5.5) g/dL Globulin (2.1-4.2) g/dL Albumin/Globulin Ratio (1.0-2.2) Assessment/Plan - Problem List (1) Status post left knee replacement Impression: impression: Stable status post left knee replacement Plan 1. mobilize with physical therapy 2. Schwarz discontinued 3. pain control 4. discharge planning
--- NOTE | 2017-02-16 15:01 | PROVIDER PROGRESS NOTE ---
Subjective - Prog Note Date Prog Note Date: 02/16/17 Prog Note Time: 12:30 - Subjective Pt reports feeling: Improved (up with PT this morning. More pain as a result. Supervisor [place] hospitalists for help with diabetes control.) Objective - Vital Signs/Intake & Output Reviewed Vital Signs: Yes Vital Signs: Vital Signs x48h Temp Pulse Resp BP Pulse Ox 02/16/17 12:00 36.5 C 58 L 16 119/78 92 02/16/17 08:00 37.1 C 93 16 151/88 H 95 Intake & Output: Intake & Output 02/13/17 02/14/17 02/15/17 02/16/17 23:59 23:59 23:59 23:59 Intake Total 1250 1891 830 Output Total 1350 625 Balance -100 1266 830 - Objective General Appearance: positive: Alert, Mild distress Eyes Bilateral: positive: Normal inspection ENT: positive: ENT inspection nml Neck: positive: Nml inspection Respiratory: positive: No respiratory distress, Breath sounds nml Cardiovascular: positive: Regular rate & rhythm Peripheral Pulses: 2+ Dorsalis pedis (L), 2+ Posterior tibialis (L) Abdomen: positive: Non-tender, Nml bowel sounds, No distention. negative: Guarding Back: positive: Nml inspection Skin: positive: Color nml, No rash, Warm, Dry Extremities: positive: Nml appearance, Other (dressing to left knee CDI, no bleeding through.). negative: Pedal edema, Calf tenderness, Joint swelling Neurologic/Psychiatric: positive: Oriented x3, Motor nml, Sensation nml, Mood/ affect nml - Lab Results Fish Bones: 02/16/17 05:33 02/16/17 05:33 Other Labs: Lab Results x24hrs 02/16/17 02/16/17 02/16/17 Range/Units 11:55 08:02 05:33 WBC (4.8-10.8) x10^3/uL RBC (4.20-5.40) 10^6/uL Hgb (12.0-16.0) g/dL Hct (37.0-47.0) % MCV (81.0-99.0) fL MCH (27.0-31.0) pg MCHC (32.0-36.0) g/dL RDW (12.0-15.0) % Plt Count (130-450) 10^3/uL MPV (7.9-10.8) fL Neut # (1.5-6.6) 10^3/uL Lymph # (1.5-3.5) 10^3/uL [place] # (0.0-1.0) 10^3/uL Eos # (0.0-0.7) 10^3/uL Baso # (0.0-0.1) 10^3/uL Absolute Nucleated RBC x10^3/uL Nucleated RBCs /100WBC Sodium 133 L (135-145) mmol/L Potassium 3.4 L (3.5-5.0) mmol/L Chloride 93 L (101-111) mmol/L Carbon Dioxide 30 (21-32) mmol/L Anion Gap 10.0 (6-13) BUN 10 (6-20) mg/dL Creatinine 0.6 (0.4-1.0) mg/dL Estimated GFR (MDRD) 97 (>89) Glucose 156 H (70-100) mg/dL POC Whole Bld Glucose 178 H 157 H (70 - 100) mg/dL Calcium 8.9 (8.5-10.3) mg/dL Total Bilirubin 0.8 (0.2-1.0) mg/dL AST 19 (10-42) IU/L ALT 16 (10-60) IU/L Alkaline Phosphatase 47 (42-121) IU/L Total Protein 6.6 L (6.7-8.2) g/dL Albumin 3.4 (3.2-5.5) g/dL Globulin 3.2 (2.1-4.2) g/dL Albumin/Globulin Ratio 1.1 (1.0-2.2) 02/16/17 Range/Units 05:33 WBC 12.3 H (4.8-10.8) x10^3/uL RBC 4.39 (4.20-5.40) 10^6/uL Hgb 12.3 (12.0-16.0) g/dL Hct 36.8 L (37.0-47.0) % MCV 83.9 (81.0-99.0) fL MCH 28.0 (27.0-31.0) pg MCHC 33.4 (32.0-36.0) g/dL RDW 15.0 (12.0-15.0) % Plt Count 204 (130-450) 10^3/uL MPV 7.5 L (7.9-10.8) fL Neut # 9.4 H (1.5-6.6) 10^3/uL Lymph # 1.5 (1.5-3.5) 10^3/uL [place] # 1.3 H (0.0-1.0) 10^3/uL Eos # 0.0 (0.0-0.7) 10^3/uL Baso # 0.0 (0.0-0.1) 10^3/uL Absolute Nucleated RBC 0.00 x10^3/uL Nucleated RBCs 0.0 /100WBC Sodium (135-145) mmol/L Potassium (3.5-5.0) mmol/L Chloride (101-111) mmol/L Carbon Dioxide (21-32) mmol/L Anion Gap (6-13) BUN (6-20) mg/dL Creatinine (0.4-1.0) mg/dL Estimated GFR (MDRD) (>89) Glucose (70-100) mg/dL POC Whole Bld Glucose (70 - 100) mg/dL Calcium (8.5-10.3) mg/dL Total Bilirubin (0.2-1.0) mg/dL AST (10-42) IU/L ALT (10-60) IU/L Alkaline Phosphatase (42-121) IU/L Total Protein (6.7-8.2) g/dL Albumin (3.2-5.5) g/dL Globulin (2.1-4.2) g/dL Albumin/Globulin Ratio (1.0-2.2) Assessment/Plan - Problem List (1) Status post left knee replacement Impression: Impression:stable postop status post left TKA Plan: 1. continue PT. 2. plan for discharge tomorrow afternoon or Tuesday morning.
[2017-02-16 16:18] LABS: BILIRUBIN,URINE NEGATIVE (NEGATIVE)
[2017-02-16 16:28] LABS: UR CULTURE IF IND NOT INDICATED; WBC,URINE 0-3 /HPF (0-5)
--- NOTE | 2017-02-16 17:01 | XRAY Report ---
FRONTAL CHEST: 02/16/2017 CLINICAL INDICATION: Decreased breath sounds, leukocytosis. COMPARISON: 12/29/2016, chest CT 01/11/2017. Frontal view of the chest demonstrates a normal cardiac silhouette. The lungs remain clear. No effu jaylin or pneumothorax is present. IMPRESSION: NO EVIDENCE OF ACUTE CARDIOPULMONARY DISEASE. JOB #: [id number] EXT JOB #:[id number]
[2017-02-16] MEDS: ATORVASTATIN 10 MG TABLET PO SCH (20:05)
[2017-02-17] MEDS: oxyCODONE 5 MG TABLET PO PRN ×2 (03:55→10:07)
[2017-02-17 05:55] LABS: BASOPHILS # (AUTO) 0.1 10^3/uL (0.0-0.1); BASOPHILS % (AUTO) 0.8 %; EOSINOPHILS # (AUTO) 0.1 10^3/uL (0.0-0.7); EOSINOPHILS % (AUTO) 0.6 %; HGB - HEMOGLOBIN 11.1 g/dL (12.0-16.0); LYMPHOCYTES # (AUTO) 1.9 10^3/uL (1.5-3.5); LYMPHOCYTES % (AUTO) 15.1 %; MEAN CORPUSCULAR HEMOGLOBIN 28.3 pg (27.0-31.0); MEAN CORPUSCULAR HGB CONC 33.7 g/dL (32.0-36.0); MEAN CORPUSCULAR VOLUME 83.8 fL (81.0-99.0); MEAN PLATELET VOLUME 7.5 fL (7.9-10.8); MONOCYTES # (AUTO) 1.1 10^3/uL (0.0-1.0); MONOCYTES % (AUTO) 8.4 %; NEUTROPHILS # (AUTO) 9.4 10^3/uL (1.5-6.6); NEUTROPHILS % (AUTO) 75.1 %; NUCLEATED RED BLOOD CELLS AUTO 0.1 /100WBC; RED BLOOD COUNT 3.94 10^6/uL (4.20-5.40); RED CELL DISTRIBUTION WIDTH 14.6 % (12.0-15.0); UNCORRECTED WHITE BLOOD COUNT 12.5 x10^3/uL; WHITE BLOOD COUNT 12.5 x10^3/uL (4.8-10.8)
[2017-02-17] MEDS: SODIUM CHLORIDE FLUSH 0.9% 10 ML SYRINGE IVP SCH (05:57)
[2017-02-17] MEDS ORDERED: MAGNESIUM HYDROXIDE 2,400 MG/30 ML UDC PO ONE (06:00)
[2017-02-17 06:08] LABS: ALBUMIN/GLOBULIN RATIO 0.9 (1.0-2.2); BILIRUBIN,TOTAL 0.5 mg/dL (0.2-1.0); CALCIUM 8.8 mg/dL (8.5-10.3); CREATININE 0.7 mg/dL (0.4-1.0); POTASSIUM 3.5 mmol/L (3.5-5.0); TOTAL PROTEIN 6.6 g/dL (6.7-8.2)
[2017-02-17] MEDS: DOCUSATE SODIUM 100 MG CAPSULE PO SCH (08:21)
[2017-02-17] MEDS: SENNA 8.6 MG TABLET PO SCH (08:21)
[2017-02-17] MEDS: ACETAMINOPHEN 500 MG TABLET PO SCH ×2 (08:21→11:38)
[2017-02-17] MEDS: OMEGA-3 ACID ETHYL ESTERS 1 GM CAPSULE PO SCH (08:21)
[2017-02-17] MEDS: hydroCHLOROthiazide 25 MG TABLET PO SCH (08:22)
[2017-02-17] MEDS: ENOXAPARIN 40 MG/0.4 ML SYRINGE SUBQ SCH (08:22)
[2017-02-17] MEDS: CHOLECALCIFEROL 400 UNIT TABLET PO SCH (08:22)
[2017-02-17] MEDS: amLODIPine 5 MG TABLET PO SCH (08:22)
[2017-02-17] MEDS: ATENOLOL 25 MG TABLET PO SCH (08:22)
[2017-02-17] MEDS: MAGNESIUM OXIDE 400 MG TABLET PO SCH (08:22)
[2017-02-17] MEDS: CALCIUM CARBONATE CHEW 500 MG TABLET PO SCH (08:23)
[2017-02-17] MEDS: NON FORMULARY MED (Mirabegron [Myrbetriq] 50 MG) PO SCH (08:23)
[2017-02-17] MEDS: INSULIN ASPART 300 UNIT/3 ML PEN SUBQ SCH ×2 (08:24→11:38)
[2017-02-17] MEDS: ONDANSETRON 4 MG/2 ML VIAL IVP PRN (09:29)
--- NOTE | 2017-02-17 12:51 | PROVIDER PROGRESS NOTE ---
Subjective - Prog Note Date Prog Note Date: 02/17/17 Prog Note Time: 12:49 - Subjective Pt reports feeling: Improved Subjective: Patient resting, says she feels exhausted after working this morning on mobility. No SOB, CP or nausea. Appetite still < than normal. No dysuria. Current Medications - Current Medications Current Medications: Active Medications Acetaminophen (Tylenol) 1,000 mg PO TIDWM [facility] Last Admin: 02/17/17 11:38 Dose: 1,000 mg Amlodipine Besylate (Norvasc) 5 mg PO DAILY [facility] Last Admin: 02/17/17 08:22 Dose: 5 mg Atenolol (Tenormin) 100 mg PO DAILY [facility] Last Admin: 02/17/17 08:22 Dose: 100 mg Atorvastatin Calcium (Lipitor) 10 mg PO QPM [facility] Last Admin: 02/16/17 20:05 Dose: 10 mg Bisacodyl (Dulcolax Supp) 10 mg NV Q12H PRN PRN Reason: Constipation Bisacodyl (Dulcolax) 10 mg PO Q12H PRN PRN Reason: Constipation Calcium Carbonate/Glycine (Tums) 1,000 mg PO DAILY [facility] Last Admin: 02/17/17 08:23 Dose: Not Given Cholecalciferol (Vitamin D3) 400 unit PO DAILY [facility] Last Admin: 02/17/17 08:22 Dose: 400 unit Diphenhydramine HCl (Benadryl) 25 mg PO Q6H PRN PRN Reason: ITCHING Diphenhydramine HCl (Benadryl Inj) 25 mg IVP Q6H PRN PRN Reason: ITCHING Docusate Sodium (Colace 100mg Capsule) 100 mg PO BID [facility] Last Admin: 02/17/17 08:21 Dose: 100 mg Enoxaparin Sodium (Lovenox) 40 mg SUBQ DAILY [facility] Last Admin: 02/17/17 08:22 Dose: 40 mg Hydrochlorothiazide (Hydrodiuril) 25 mg PO DAILY [facility] Last Admin: 02/17/17 08:22 Dose: 25 mg Insulin Aspart (Novolog) 1 - 5 unit SUBQ 0800,1200,1700,2100 [facility] PRN Reason: Protocol Last Admin: 02/17/17 11:38 Dose: 1 unit Ketorolac Tromethamine (Toradol Inj) 15 mg IVP Q6HR PRN PRN Reason: PAIN Stop: 02/21/17 10:32 Last Admin: 02/16/17 20:05 Dose: 15 mg Lidocaine (Lidoderm Patch) 1 patch TOP DAILY PRN PRN Reason: PAIN Magnesium Oxide (Mag Ox) 200 mg PO DAILYWM [facility] Last Admin: 02/17/17 08:22 Dose: 200 mg Non-Formulary Medication (Mirabegron [Myrbetriq]) 50 mg PO DAILY [facility] Last Admin: 02/17/17 08:23 Dose: Not Given Grvwe-[id number]-Cxdn Ethyl Esters (Lovaza) 1 gm PO DAILY [facility] Last Admin: 02/17/17 08:21 Dose: 1 gm Ondansetron HCl (Zofran Inj) 4 mg IVP Q6HR PRN PRN Reason: Nausea / Vomiting Last Admin: 02/17/17 09:29 Dose: 4 mg Oxycodone HCl (Roxicodone) 5 - 10 mg PO Q4HR PRN PRN Reason: PAIN Last Admin: 02/17/17 10:07 Dose: 5 mg Prochlorperazine Edisylate (Compazine Inj) 10 mg IVP Q6HR PRN PRN Reason: Nausea / Vomiting Last Admin: 02/14/17 16:12 Dose: 10 mg Senna (Senokot) 17.2 mg PO DAILY [facility] Last Admin: 02/17/17 08:21 Dose: 17.2 mg Sodium Chloride (Normal Saline Flush 0.9%) 10 ml IVP PRN PRN PRN Reason: NEEDED PER PROVIDER ORDERS Last Admin: 02/16/17 15:06 Dose: 10 ml Sodium Chloride (Normal Saline Flush 0.9%) 10 ml IVP Q8HR [facility] Last Admin: 02/17/17 05:57 Dose: 10 ml Amlodipine Besylate 5 mg PO DAILY 02/01/17 Aspirin [Adult Low Dose Aspirin EC] 81 mg PO DAILY 02/01/17 Atenolol 100 mg PO DAILY 02/01/17 Calcium Carbonate/Vitamin D3 [Calcium 600-Vit D3 400 Tablet] 1 tab PO DAILY Cranberry Fruit Extract [Cranberry] 125 mg PO DAILY 02/01/17 Magnesium 250 mg PO DAILY 02/01/17 Mirabegron [Myrbetriq] 50 mg PO DAILY 02/01/17 [place]-3/Dha/Epa/Fish Oil [Fish Oil 1,000 mg Softgel] 1 cap PO DAILY 02/01/17 Simvastatin 20 mg PO QPM 02/01/17 metFORMIN [Glucophage] 500 mg PO DAILY 02/01/17 Hydrochlorothiazide [Hydrochlorothiazide] 25 mg PO DAILY 02/14/17 Objective - Vital Signs/Intake & Output Reviewed Vital Signs: Yes Vital Signs: Vital Signs x48h Temp Pulse Resp BP Pulse Ox 02/17/17 08:00 36.8 C 72 18 129/79 94 Intake & Output: Intake & Output 02/14/17 02/15/17 02/16/17 02/17/17 23:59 23:59 23:59 23:59 Intake Total 1250 1891 1130 220 Output Total 1350 625 Balance -100 1266 1130 220 - Objective General Appearance: positive: No acute distress, Alert Eyes Bilateral: positive: PERRL ENT: positive: No signs of dehydration Neck: positive: No JVD Respiratory: positive: Chest non-tender, No respiratory distress, Breath sounds nml (diminsihed bases) Cardiovascular: positive: Regular rate & rhythm Peripheral Pulses: 2+ Radial (R), 2+ Radial (L) Abdomen: positive: Non-tender (rounded, decreased breath sounds). negative: Guarding, Rebound Skin: positive: Color nml, Warm, Dry. negative: Skin rash Extremities: positive: Nml appearance. negative: Pedal edema, Calf tenderness Neurologic/Psychiatric: positive: Oriented x3, Sensation nml, Mood/affect nml - Lab Results Fish Bones: 02/17/17 05:43 02/17/17 05:43 Other Labs: Lab Results x24hrs 02/17/17 02/17/17 02/16/17 Range/Units 05:43 05:43 16:48 WBC 12.5 H (4.8-10.8) x10^3/uL RBC 3.94 L (4.20-5.40) 10^6/uL Hgb 11.1 L (12.0-16.0) g/dL Hct 33.0 L (37.0-47.0) % MCV 83.8 (81.0-99.0) fL MCH 28.3 (27.0-31.0) pg MCHC 33.7 (32.0-36.0) g/dL RDW 14.6 (12.0-15.0) % Plt Count 217 (130-450) 10^3/uL MPV 7.5 L (7.9-10.8) fL Neut # 9.4 H (1.5-6.6) 10^3/uL Lymph # 1.9 (1.5-3.5) 10^3/uL [place] # 1.1 H (0.0-1.0) 10^3/uL Eos # 0.1 (0.0-0.7) 10^3/uL Baso # 0.1 (0.0-0.1) 10^3/uL Absolute Nucleated RBC 0.01 x10^3/uL Nucleated RBCs 0.1 /100WBC Sodium 133 L (135-145) mmol/L Potassium 3.5 (3.5-5.0) mmol/L Chloride 91 L (101-111) mmol/L Carbon Dioxide 33 H (21-32) mmol/L Anion Gap 9.0 (6-13) BUN 18 (6-20) mg/dL Creatinine 0.7 (0.4-1.0) mg/dL Estimated GFR (MDRD) 81 L (>89) Glucose 153 H (70-100) mg/dL POC Whole Bld Glucose 181 H (70 - 100) mg/dL Calcium 8.8 (8.5-10.3) mg/dL Total Bilirubin 0.5 (0.2-1.0) mg/dL AST 14 (10-42) IU/L ALT 14 (10-60) IU/L Alkaline Phosphatase 50 (42-121) IU/L Total Protein 6.6 L (6.7-8.2) g/dL Albumin 3.2 (3.2-5.5) g/dL Globulin 3.4 (2.1-4.2) g/dL Albumin/Globulin Ratio 0.9 L (1.0-2.2) Urine Color Urine Clarity (CLEAR) Urine pH (5.0-7.5) PH Ur Specific [place] (1.002-1.030) Urine Protein (NEGATIVE) mg/dL Urine Glucose (UA) (NEGATIVE) mg/dL Urine Ketones (NEGATIVE) mg/dL Urine Occult Blood (NEGATIVE) Urine Nitrite (NEGATIVE) Urine Bilirubin (NEGATIVE) Urine Urobilinogen (NORMAL) E.U./dL Ur Leukocyte Esterase (NEGATIVE) Urine RBC (0-5) /HPF Urine WBC (0-5) /HPF Ur Epithelial Cells (<= Few) /HPF Ur Squamous Epith Cells (<= Few) Urine Bacteria (None Seen) /HPF Urine Culture Comments 02/16/17 Range/Units 16:05 WBC (4.8-10.8) x10^3/uL RBC (4.20-5.40) 10^6/uL Hgb (12.0-16.0) g/dL Hct (37.0-47.0) % MCV (81.0-99.0) fL MCH (27.0-31.0) pg MCHC (32.0-36.0) g/dL RDW (12.0-15.0) % Plt Count (130-450) 10^3/uL MPV (7.9-10.8) fL Neut # (1.5-6.6) 10^3/uL Lymph # (1.5-3.5) 10^3/uL [place] # (0.0-1.0) 10^3/uL Eos # (0.0-0.7) 10^3/uL Baso # (0.0-0.1) 10^3/uL Absolute Nucleated RBC x10^3/uL Nucleated RBCs /100WBC Sodium (135-145) mmol/L Potassium (3.5-5.0) mmol/L Chloride (101-111) mmol/L Carbon Dioxide (21-32) mmol/L Anion Gap (6-13) BUN (6-20) mg/dL Creatinine (0.4-1.0) mg/dL Estimated GFR (MDRD) (>89) Glucose (70-100) mg/dL POC Whole Bld Glucose (70 - 100) mg/dL Calcium (8.5-10.3) mg/dL Total Bilirubin (0.2-1.0) mg/dL AST (10-42) IU/L ALT (10-60) IU/L Alkaline Phosphatase (42-121) IU/L Total Protein (6.7-8.2) g/dL Albumin (3.2-5.5) g/dL Globulin (2.1-4.2) g/dL Albumin/Globulin Ratio (1.0-2.2) Urine Color YELLOW Urine Clarity CLOUDY (CLEAR) Urine pH 6.0 (5.0-7.5) PH Ur Specific [place] 1.010 (1.002-1.030) Urine Protein NEGATIVE (NEGATIVE) mg/dL Urine Glucose (UA) NEGATIVE (NEGATIVE) mg/dL Urine Ketones NEGATIVE (NEGATIVE) mg/dL Urine Occult Blood SMALL H (NEGATIVE) Urine Nitrite NEGATIVE (NEGATIVE) Urine Bilirubin NEGATIVE (NEGATIVE) Urine Urobilinogen 0.2 (NORMAL) (NORMAL) E.U./dL Ur Leukocyte Esterase NEGATIVE (NEGATIVE) Urine RBC 6-10 H (0-5) /HPF Urine WBC 0-3 (0-5) /HPF Ur Epithelial Cells RARE Transitional (<= Few) /HPF Ur Squamous Epith Cells MOD Squamous H (<= Few) Urine Bacteria Few (None Seen) /HPF Urine Culture Comments NOT INDICATED Assessment/Plan - Problem List (1) Status post knee surgery Impression: Bilateral knee arthritis, underwent elective replacement on 02/14. No post-op anemia. Experiencing pain with ROM of L knee resolves with rest, distal CMS intact. Poor appetite but no nausea. PT/OT eval and recc SNF due to poor mobility, decreased safety awareness. Continue ASA [id number] post-op for DVT prophylaxis then 81mg thereafter.Continue tylenol TID and oxycodone for breakthrough pain. No BM yet since surgery, passing flatus. Continue colace bid and mirlax, had MOM and dulcolax suppository this AM. Encourage PO intake * Postoperative leukocytosis WBC 7.8 pre-op, trending up slowly since surgery - now 12.3. No fever or meghana sign of infection. Did have gusman in the ashley-operative period increasing risk for UTI. Decreased deep breathing and pain increase risk for atelectasis. Surgical sight remains wrapped with HIMA wrap. May be reactive to surgery. UA clean. CXR without infiltrate. Encourage ICS Q2hr . Repeat CBC in 3 days. (2) T2DM (type 2 diabetes mellitus) Impression: Hx of T2DM, last A1c 6.3%. No neuropathy or nephropathy. BG controlled, AM BG usually in 150s, then normal throughtout the day. Resume metformin at discharge. Carb control diet (3) Hypertension Impression: Hx of HTN, on CCB, BB and HCTZ at home. Normotensive post-op, then trending up now in the 140-150s. Continue norvasc and atenolol and HCTZ at discharge. Monitor BP routinely and titrate meds as needed (4) Hyperlipidemia Impression: Hx of HLD, associated with T2DM. No previous lipid panel available to review. Continue statin and lovaza. Heart healthy diet encouraged To [facility] this afternoon
[2017-02-17 13:31] VITALS: BP 108/67
--- NOTE | 2017-03-15 17:20 | DISCHARGE SUMMARY ---
DATE OF ADMISSION: 02/14/2017 DATE OF DISCHARGE: 02/17/2017 CONDITION ON DISCHARGE: Stable. FINAL DIAGNOSES: 1. Left total knee arthroplasty. 2. Bilateral knee osteoarthritis. 3. Aftercare following knee joint replacement surgery. 4. Hypertension. 5. Type 2 diabetes mellitus. 6. Hyperlipidemia. PROCEDURES: Left total knee arthroplasty on 02/14/2017. HISTORY OF PRESENT ILLNESS: This is a 76-year-old female with multiple medical problems as noted abov e with chronic and progressive osteoarthritis of both knees (left greater than right). This had progr essed to the point where she was no longer functional despite interventions and conservative measures to try to treat her osteoarthritis and she elected total knee arthroplasty. She had undergone preope rative clearance by her primary care physician. LABORATORY DATA: CBC from 02/17/2017: WBC 12.5, hemoglobin 11.1, hematocrit 33.0, platelet count 217, 000. Neutrophils 9.4, lymphocytes 1.9, monocytes 1.1, eosinophils 0.1, basophil 0.1. Chemistry from 0 02/17/2017 showed a sodium of 133, potassium of 3.5, chloride of 91, carbon dioxide of 33, a BUN of 18 , creatinine of 0.7, a glucose of 153, calcium of 8.8. Urine from 02/16/2017 was yellow, cloudy, with a pH of 6.0, specific gravity of 1.010. Chemistries we re negative except for a small amount of occult blood. Leukocyte esterase was negative. HOSPITAL COURSE: Patient underwent a left total knee arthroplasty on 02/14/2017. Her postoperative co urse was complicated only by difficulties with mobilization with physical therapy secondary to pain a nd debilitation. On postoperative day 3 she was deemed to have progressed enough with physical therap y to be transferred to an extended care facility. DISCHARGE MEDICATIONS: 1. [place] 3 fish oil 1000 mg 1 capsule p.o. q. day. 2. Calcium carbonate, vitamin D3 600/400 1 p.o. daily. 3. Enteric coated aspirin, 81 mg, 1 p.o. daily. 4. Simvastatin 20 mg p.o. q. p.m. 5. Atenolol 100 mg p.o. q. day. 6. Mirabegron 50 mg p.o. daily. 7. Metformin 500 mg p.o. daily. 8. Magnesium 250 mg p.o. daily. 9. Amlodipine 5 mg p.o. daily. 10. Cranberry fruit extract 125 mg p.o. daily. 11. Hydrochlorothiazide 25 mg p.o. daily. DISCHARGE INSTRUCTIONS: 1. Diet: Diabetic, low calorie. 2. Activity: Weight bearing as tolerated left lower extremity with walker for ambulation. The patient is discharged to extended care facility. Followup orthopaedics, Etienne, in 2 weeks for wound check. CODE STATUS: FULL CODE. JOB #: [id number] EXT JOB #:[id number]
--- NOTE | 2017-03-15 17:32 | OPERATIVE REPORT ---
DATE OF SURGERY: 02/14/2017 00:00:00 PREOPERATIVE DIAGNOSIS: Bilateral knee osteoarthritis. POSTOPERATIVE DIAGNOSIS: Bilateral knee osteoarthritis. NAME OF PROCEDURE: Left total knee arthroplasty. SURGEON: Royce Clifton MD ANESTHESIOLOGIST: Parish Leos CRNA ANESTHESIA: Local with moderate sedation and spinal. PATHOLOGY: Same. ESTIMATED BLOOD LOSS: 50 mL COMPLICATIONS: None. IMPLANTS: Jon Persona knee size 8 narrow femoral component, size ECS tibial tray, tibial insert PS Ultra high molecular weight polyethylene size E x 10 mm, patella component Ultra high molecular weight polyethylene 9 x 38 mm, palacos cement. FLUIDS: 1700 mL of Lactated Ringers. DISPOSITION: PACU, then med/surg. CONDITION AT END OF PROCEDURE: Stable. INDICATIONS: This is a 76-year-old female with history of multiple medical problems and severe and progressive osteoarthritis of both knees documented by radiographs showing [id number] contact with marginal osteophytes, subchondral , cystic and sclerotic changes. Despite efforts to improve her function with cane for ambulation, physical therapy, exercise, modification of activities, nonsteroidal anti-inflammatories , acetaminophen, and injections, she has failed to have adequate mitigation of her pain symptoms. She, therefore, is opting for total knee arthroplasty of both knees starting with her left. PROCEDURE IN DETAIL: After consent identification, the patient was brought to the operating room and placed in the supine position upon the operating table. After induction of general endotracheal anesthesia and appropriate monitoring, the left lower extremity was prepped and draped free in the usual sterile fashion for knee arthroplasty. Padded tourniquet was placed to the proximal thigh. The leg was placed in a padded Hutson leg lepe. After an appropriate time-out was conducted, we mapped out a standard median parapatellar incision. After exsanguination of the extremity, with an Esmarch bandage the tourniquet was inflated to 275 mmHg. We used a 10 blade scalpel to make our standard midline incision over the left knee centered over the patella. The incision was carried down through the retinaculum. We made a median parapatellar approach through the retinaculum and everted the patella. We used an osteotome and rongeur to remove osteophytes. Osteophytes were carefully removed from the notch. A drill was then used to make a counterintelligence agent hole with the junction between Blumensaat's line and the trochlear ridge. The intermedullary guide was placed into the femur. This was used to make a 10 mm distal femoral cut with an oscillating saw. The distal femoral guide was then used to make an anterior cut with the oscillating saw. The combination guide was then placed on the distal femur and used to make the anterior, posterior and chamfer cuts. We shaved a piece of the anterior chamfer cut to plug our distal femur drill hole. We then sized the distal femur to a size 8 narrow femoral component. Next, we placed the extramedullary guide over the tibia. This was used to make our proximal tibial cut taking 4 mm off the low side which was on the medial side. We then used our trial components to size the tibial tray and to make our tibial cuts. We placed our femoral trial with the box cutting jig over the distal femur and made our box cuts. With the patella everted we used the patellar clamp and calipers to measure the thickness of the patella which was 24 mm. We took off a 9 mm cut from the patella with the oscillating saw and the cutting guide. We sized the patella to a size 38 mm diameter and used the cutting jig to make 3 holes for the pegs for the patellar component. A patellar trial component, narrow size 8 femoral component, size E tibial tray, and 10 mm insert trial were then positioned in the knee and the knee was reduced. Range of motion and anterior, posterior drawer as well and valgus stress revealed good stability. The trial components were removed from the knee. We then thoroughly irrigated the knee with 3 liters of sterile saline. The knee was then packed with dry lap sponges. Meanwhile, 2 batches of palacos cement were mixed on the back table and inserted into the cement gun. They were used to place cement backing on the size 8 narrow femoral component and size E posterior stabilized tibial tray in the patellar component. We began by inserting the tibial tray and impacting it. The femoral component was also inserted and impacted. Careful cement removal was then carried out using a freer elevator and a tonsil forceps. The patellar component was also backed with cement and clamped to the patella. Careful removal of the cement was also carried out. With the components in place, the knee was placed in an extended position with the heel resting on the Figueroa stand. The knee was left in this extended position until the cement had hardened. We then again inspected the knee to remove any additional cement debris. The knee was then thoroughly irrigated. We then injected the knee with our standard 60 mL combination of Duramorph, Toradol, bupivacaine, and saline. We then sequentially closed the knee by performing a repair of the retinaculum with a running interlocking #2 Ethibond suture. Subcuticular closure was carried out with interrupted 2-0 Vicryl sutures. A running 3-0 Monocryl suture was used to repair the dermis. We elected not to use a drain. Prior to closure we had plugged the hole in the distal femur with the bone plug made from the anterior chamfer cut. When the repair was complete, we dressed the knee with a Mepilex silver dressing and the extremity was wrapped from the thigh to the toes with an Akhil bandage. On completion of the procedure, the tourniquet was deflated without complication. The patient was then transferred to the recovery room in good condition, having tolerated the procedure well. JOB #: [id number] EXT JOB #:[id number] NADIA
== END 2017-02-17 14:16 | DRG 470 ==
LOC: MS 06:01
PROVIDERS: ADMIT Orthopaedic Surgery; ATTEND Orthopaedic Surgery
PROC: 0SRD0J9 Replacement of Left Knee Joint with Synthetic Substitute, Cemented, Open Approach (ICD-10-PCS; principal; 2017-02-14 07:30)
DX: M17.0 Bilateral primary osteoarthritis of knee (principal); Z68.41 Body mass index [BMI] 40.0-44.9, adult; I10 Essential (primary) hypertension; E66.9 Obesity, unspecified; E11.9 Type 2 diabetes mellitus without complications; E78.5 Hyperlipidemia, unspecified; N39.41 Urge incontinence; Z79.891 Long term (current) use of opiate analgesic; Z79.84 Long term (current) use of oral hypoglycemic drugs; Z79.899 Other long term (current) drug therapy
CPT/HCPCS: 36415; 71010; 80053; 81001; 83036; 85025; 87086

== ENCOUNTER 2017-02-19 08:00 | Outpatient (CLI) | payer MEDICARE, OTHER ==
[2017-02-19 18:05] LABS: BASOPHILS # (AUTO) 0.1 10^3/uL (0.0-0.1); BASOPHILS % (AUTO) 0.7 %; EOSINOPHILS # (AUTO) 0.3 10^3/uL (0.0-0.7); HCT - HEMATOCRIT 33.5 % (37.0-47.0); HGB - HEMOGLOBIN 11.3 g/dL (12.0-16.0); LYMPHOCYTES # (AUTO) 2.7 10^3/uL (1.5-3.5); LYMPHOCYTES % (AUTO) 27.1 %; MEAN CORPUSCULAR HEMOGLOBIN 28.1 pg (27.0-31.0); MEAN CORPUSCULAR HGB CONC 33.8 g/dL (32.0-36.0); MEAN CORPUSCULAR VOLUME 83.1 fL (81.0-99.0); MEAN PLATELET VOLUME 7.7 fL (7.9-10.8); MONOCYTES # (AUTO) 1.2 10^3/uL (0.0-1.0); MONOCYTES % (AUTO) 11.4 %; NEUTROPHILS # (AUTO) 5.8 10^3/uL (1.5-6.6); NEUTROPHILS % (AUTO) 57.8 %; NUCLEATED RED BLOOD CELLS AUTO 0.1 /100WBC; RED BLOOD COUNT 4.03 10^6/uL (4.20-5.40); RED CELL DISTRIBUTION WIDTH 14.9 % (12.0-15.0); UNCORRECTED WHITE BLOOD COUNT 10.1 x10^3/uL; WHITE BLOOD COUNT 10.1 x10^3/uL (4.8-10.8)
== END 2017-02-19 08:01 | disposition home or self-care (01) ==
LOC: LAB.R 08:00
DX: D64.9 Anemia, unspecified (principal)
CPT/HCPCS: 85025

== ENCOUNTER 2017-02-19 18:02 | Outpatient (CLI) | payer MEDICARE | END 2017-02-19 18:03 | disposition critical access hospital (66) | LOC: EMS 18:02 | PROVIDERS: ATTEND Surgery | DX: M79.89 Other specified soft tissue disorders (principal) | CPT/HCPCS: A0425; A0429 ==

== ENCOUNTER 2017-02-19 18:11 | Emergency (ER) | payer MEDICARE ==
--- NOTE | 2017-02-19 18:59 | ED Physician Documentation ---
PD HPI LOWER EXT INJURY - Stated complaint Stated Complaint: PN/SWELLING SPO KNEE SURG - Chief complaint Chief Complaint: Ext Problem - History obtained from History obtained from: Patient - History of Present Illness PD HPI LOW EXT INJURY LOCATION: Left, Knee, Lower leg Type of injury: Other (had recent surgery and was noting some swelling in lower leg below the incision area. No redness nor drainage. Talked with Ortho office and receptionist airline lounge referred her to go to the ER.) Timing - onset: Yesterday Timing - details: Gradual onset, Still present Worsened by: Moving, Palpating Associated symptoms: Swelling (anterior lower leg below the incision area.). No : Weakness, Numbness Recently seen: Surgery (several days ago, knee replacement) Review of Systems Constitutional: denies: Fever, Chills Cardiac: denies: Chest pain / pressure, Palpitations Respiratory: denies: Dyspnea, Cough Neurologic: denies: Focal weakness, Numbness PD PAST MEDICAL HISTORY - Past Medical History Past Medical History: Yes Cardiovascular: Hypertension, High cholesterol Respiratory: None Endocrine/Autoimmune: Type 2 diabetes GI: Colon polyps : Nocturia HEENT: None Psych: None Musculoskeletal: Osteoarthritis Derm: None - Past Surgical History General: Appendectomy - Present Medications Home Medications: Ambulatory Orders Medication Instructions Recorded Confirmed Amlodipine Besylate 5 mg PO DAILY 02/01/17 02/19/17 Aspirin [Adult Low Dose Aspirin EC] 325 mg PO DAILY 02/01/17 02/19/17 Atenolol 100 mg PO DAILY 02/01/17 02/19/17 Calcium Carbonate/Vitamin D3 1 tab PO DAILY 02/01/17 02/19/17 [Calcium 600-Vit D3 400 Tablet] Cranberry Fruit Extract [Cranberry] 125 mg PO DAILY 02/01/17 02/14/17 Magnesium 250 mg PO DAILY 02/01/17 02/19/17 Mirabegron [Myrbetriq] 50 mg PO DAILY 02/01/17 02/19/17 [place]-3/Dha/Epa/Fish Oil [Fish Oil 1 cap PO DAILY 02/01/17 02/14/17 1,000 mg Softgel] Simvastatin 20 mg PO QPM 02/01/17 02/19/17 metFORMIN [Glucophage] 500 mg PO DAILY 02/01/17 02/19/17 Hydrochlorothiazide 25 mg PO DAILY 07/10/17 07/15/17 [Hydrochlorothiazide] oxyCODONE [Roxicodone] 02/19/17 - Allergies Allergies/Adverse Reactions: Allergies Allergy/AdvReac Type Severity Reaction Status Date / Time No Known Drug Allergies Allergy Verified 02/01/17 12:28 - Social History Does the pt smoke?: No Smoking Status: Never smoker PD ED PE NORMAL - Vitals Vital signs reviewed: Yes - General General: Alert and oriented X 3, No acute distress, Well developed/nourished - Cardiac Cardiac: RRR, No murmur - Respiratory Respiratory: Clear bilaterally - Abdomen Abdomen: Soft, Non tender - Derm Derm: Normal color, Warm and dry - Extremities Extremities: No calf tenderness / cord (tender anterior mid lower leg with mild swelling but no redness. Surgical wound anterior knee without signs of infection. ) - Neuro Neuro: Alert and oriented X 3, No motor deficit, No sensory deficit, Normal speech Results - Vitals Vitals: Oxygen O2 Source Room air PD MEDICAL DECISION MAKING - ED course Complexity details: considered differential (seems lower suspicion but high risk for DVT, so will get U/S. ), d/w patient Departure - Departure Disposition: 01 Home, Self Care Clinical Impression: Left leg swelling Clinical Impression: (Ruled Out): Deep vein thrombosis Condition: Stable Record reviewed to determine appropriate education?: Yes Comments: No deep clots on the ultrasound. You can elevate the leg at times and could use terri wrap or snug socks to help with the swelling. Recheck if worsens. Discharge Date/Time: 02/19/17 22:00
[2017-02-19] MEDS ORDERED: oxyCODONE 5 MG TABLET PO STA (19:09)
[2017-02-19] MEDS ORDERED: oxyCODONE 5 MG TABLET ONE (19:27)
--- NOTE | 2017-02-19 21:02 | Ultrasound Preliminary Report ---
Exam: US Duplex Ext Veins Left IMPRESSION: No evidence for deep venous thrombosis. [facility] SITE ID: [id number]
--- NOTE | 2017-02-19 21:05 | Ultrasound Report ---
EXAM: LEFT LOWER EXTREMITY VENOUS ULTRASOUND EXAM DATE: 02/19/2017 08:23 PM. CLINICAL HISTORY: Post op leg swelling . COMPARISON: None. TECHNIQUE: Real-time sonographic vascular imaging was performed by the return to factory clerk through the lower extremity utilizing both color-flow and Doppler spectral analysis. Multiple treasury representative static carol ges were saved for review. FINDINGS: Common Femoral Vein (CFV): Normal. CFV-GSV Junction: Normal. Profunda Femoral Vein (PFV): Normal. Femoral Vein (FV) Prox: Normal. Femoral Vein (FV) Mid: Normal. Femoral Vein (FV) Dist: Normal. Popliteal Vein: Normal. Posterior Tibial Veins: Normal. Peroneal Veins: Normal. Contralateral Side CFV: Normal. Other: None. IMPRESSION: No evidence for deep venous thrombosis. [facility] Referring Provider Line: [phone] SITE ID: [id number]
[2017-02-19 21:39] VITALS: BP 132/74
== END 2017-02-19 22:00 | disposition home or self-care (01) ==
LOC: ED 18:11
DX: R22.42 Localized swelling, mass and lump, left lower limb (principal); I10 Essential (primary) hypertension; E11.9 Type 2 diabetes mellitus without complications; Z79.84 Long term (current) use of oral hypoglycemic drugs; Z79.82 Long term (current) use of aspirin; Z98.890 Other specified postprocedural states
CPT/HCPCS: 93971; 99283; A9270

== ENCOUNTER 2017-02-26 20:30 | Outpatient (CLI) | payer MEDICARE, OTHER ==
[2017-02-26 21:38] LABS: CREATININE 0.8 mg/dL (0.4-1.0); POTASSIUM 3.8 mmol/L (3.5-5.0)
[2017-02-26 21:40] LABS: BASOPHILS # (AUTO) 0.1 10^3/uL (0.0-0.1); BASOPHILS % (AUTO) 0.7 %; EOSINOPHILS # (AUTO) 0.4 10^3/uL (0.0-0.7); EOSINOPHILS % (AUTO) 3.3 %; HCT - HEMATOCRIT 35.5 % (37.0-47.0); HGB - HEMOGLOBIN 12.1 g/dL (12.0-16.0); LYMPHOCYTES # (AUTO) 2.7 10^3/uL (1.5-3.5); LYMPHOCYTES % (AUTO) 24.8 %; MEAN CORPUSCULAR HEMOGLOBIN 28.6 pg (27.0-31.0); MEAN CORPUSCULAR HGB CONC 34.1 g/dL (32.0-36.0); MEAN CORPUSCULAR VOLUME 83.9 fL (81.0-99.0); MEAN PLATELET VOLUME 7.3 fL (7.9-10.8); MONOCYTES # (AUTO) 0.8 10^3/uL (0.0-1.0); NEUTROPHILS # (AUTO) 6.9 10^3/uL (1.5-6.6); NEUTROPHILS % (AUTO) 64.2 %; RED BLOOD COUNT 4.23 10^6/uL (4.20-5.40); UNCORRECTED WHITE BLOOD COUNT 10.7 x10^3/uL; WHITE BLOOD COUNT 10.7 x10^3/uL (4.8-10.8)
== END 2017-02-26 20:31 | disposition home or self-care (01) ==
LOC: LAB.R 20:30
DX: I10 Essential (primary) hypertension (principal); Z47.1 Aftercare following joint replacement surgery
CPT/HCPCS: 80048; 85025

== ENCOUNTER 2017-07-13 10:45 | Outpatient (CLI) | payer MEDICARE ==
--- NOTE | 2017-07-14 13:10 | XRAY Report ---
REVISED: THIS REPORT WAS ORIGINALLY SIGNED ON 07/14/2017 @ 1531. REPORT WAS UNSIGNED TO REMOVE THE [employer] CONSULTANT FLAGS ON 08/16/2017. EXAM: LUMBAR SPINE 2 VIEW 07/13/2017 There is severe disk space narrowing at L2-L3 and L3-L4. There is moderate disk space narrowing at L1-L2, L4-L5, and L5-S1. There are moderate anterior osteophytes at those levels. There is grade 1 anterolisthesis of L3 with respect to L2 and L4, favored to be degenerative. Alignment appears otherwise anatomic. No acute bone findings are seen. IMPRESSION: [id number] LUMBAR SPONDYLOSIS. JOB #: [id number] EXT JOB #: [id number] NADIA
== END 2017-07-13 10:46 | disposition home or self-care (01) ==
LOC: DI.N 10:45
PROVIDERS: ATTEND Internal Medicine
DX: M47.896 Other spondylosis, lumbar region (principal); M43.16 Spondylolisthesis, lumbar region
CPT/HCPCS: 72100

== ENCOUNTER 2017-08-06 16:13 | Emergency (ER) | payer MEDICARE ==
[2017-08-06] MEDS ORDERED: HYDROcod/ACETAM 5/325 MG TABLET PO STA (16:51)
--- NOTE | 2017-08-06 16:53 | ED Physician Documentation ---
PD HPI UPPER EXT INJURY - Stated complaint Stated Complaint: LEFT SHOULDER PAIN - Chief complaint Chief Complaint: Ext Problem - History obtained from History obtained from: Patient - History of Present Illness Location: Other (For the last 2 days without specific injury she has had left shoulder pain, severe if she moves it in any direction. There is no associated fever. She has not had trouble with this shoulder before.) Review of Systems Constitutional: denies: Fever, Chills Nose: reports: Reviewed and negative Throat: reports: Reviewed and negative Cardiac: reports: Reviewed and negative Respiratory: reports: Reviewed and negative PD PAST MEDICAL HISTORY - Past Medical History Cardiovascular: Hypertension, High cholesterol Respiratory: None Endocrine/Autoimmune: Type 2 diabetes GI: Colon polyps : Nocturia HEENT: None Psych: None Musculoskeletal: Osteoarthritis Derm: None - Past Surgical History General: Appendectomy - Present Medications Home Medications: Ambulatory Orders Medication Instructions Recorded Confirmed Amlodipine Besylate 5 mg PO DAILY 02/01/17 08/06/17 Aspirin [Adult Low Dose Aspirin EC] 325 mg PO DAILY 02/01/17 08/06/17 Atenolol 100 mg PO DAILY 02/01/17 08/06/17 Cranberry Fruit Extract [Cranberry] 125 mg PO DAILY 02/01/17 08/06/17 Magnesium 250 mg PO DAILY 02/01/17 08/06/17 [place]-3/Dha/Epa/Fish Oil [Fish Oil 1 cap PO DAILY 02/01/17 08/06/17 1,000 mg Softgel] Simvastatin 20 mg PO QPM 02/01/17 08/06/17 metFORMIN [Glucophage] 500 mg PO DAILY 02/01/17 08/06/17 Hydrochlorothiazide 25 mg PO DAILY 02/14/17 08/06/17 [Hydrochlorothiazide] HYDROcod/ACETAM 5/325 [[place] 5/325] 1 - 2 ea PO Q6H PRN #15 tablet 08/06/17 traMADol [Ultram] 1 tab PO Q6HR 08/06/17 08/06/17 - Allergies Allergies/Adverse Reactions: Allergies Allergy/AdvReac Type Severity Reaction Status Date / Time No Known Drug Allergies Allergy Verified 08/06/17 17:09 - Social History Does the pt smoke?: No Smoking Status: Never smoker PD ED PE NORMAL - Vitals Vital signs reviewed: Yes - General General: Alert and oriented X 3, No acute distress - Extremities Extremities: Other (Mild tenderness over the before meals and glenohumeral joints of the left shoulder, she has severe pain with active abduction, I am able to passively move her a little better and she has positive supraspinatus testing, normal sensation and pulses in the hand.) - Neuro Neuro: Alert and oriented X 3, Normal speech - Psych Psych: Normal mood, Normal affect Results - Vitals Vitals: Vital Signs - 24 hr 08/06/17 16:19 Temperature 36.2 C L Heart Rate 98 Respiratory 18 Rate Blood Pressure 132/84 H O2 Saturation 98 Oxygen O2 Source Room air - Rads (name of study) L shoulder 3v Radiology: EMP read contemporaneously (ANTONIO hermosillo fx) PD MEDICAL DECISION MAKING - ED course ED course: Signs and symptoms consistent with rotator cuff tendinitis in the left shoulder of this 76-year-old woman. She was placed in a sling for comfort but discussed need to come out of it a few times a day and exercises to do to maintain range of motion of the shoulder joint. Orthopedic follow-up was advised. Departure - Departure Disposition: 01 Home, Self Care Clinical Impression: Tendinitis of left rotator cuff Condition: Good Record reviewed to determine appropriate education?: Yes Instructions: ED Tendinitis Rotator Cuff Follow-Up: [facility] [Provider Group] Prescriptions: HYDROcod/ACETAM 5/325 [[place] 5/325] 1 - 2 ea PO Q6H PRN #15 tablet PRN Reason: Pain Comments: Your blood pressure was elevated today on check into the emergency department. This does not mean that you have hypertension, it is a common phenomenon to come to the emergency department and have elevated blood pressure. I recommend that you see your primary care physician within the week to have it rechecked when you are feeling better. Do not drink or drive while taking narcotic pain medication. Note that many narcotic pain relievers also contain Tylenol/acetaminophen. Please ensure that your total dose of acetaminophen from all sources does not exceed 3 g (3000 mg) per day. You may get constipated while on this medication. Take a stool softener such as Colace twice a day while you are on it. Also add an rvmv-qhr-nubpnuu laxative such as senna or MiraLAX on any day that you do not have a bowel movement. If you received a narcotic pain medication or sedative while in the emergency department, do not drive for the next 24 hours.
--- NOTE | 2017-08-06 17:37 | XRAY Report ---
EXAM: LEFT SHOULDER RADIOGRAPHY EXAM DATE: 08/06/2017 05:04 PM. CLINICAL HISTORY: Shoulder pain. COMPARISON: None. TECHNIQUE: 3 views. FINDINGS: Bones: Normal. No fracture or bone lesion. Joints: Mild narrowing of the glenohumeral joint with marginal osteophytes. Soft tissues: The visualized hemithorax is unremarkable. No soft tissue swelling. IMPRESSION: Moderate left glenohumeral osteoarthritis. [facility] Referring Provider Line: [phone] SITE ID: [id number]
[2017-08-06 17:53] VITALS: BP 135/91
[2017-08-06] MEDS ORDERED: HYDROcod/ACET 5/325 Prepack 6 PO STA (17:55)
== END 2017-08-06 18:05 | disposition home or self-care (01) ==
LOC: ED 16:13
DX: M75.102 Unspecified rotator cuff tear or rupture of left shoulder, not specified as traumatic (principal); I10 Essential (primary) hypertension; E78.00 Pure hypercholesterolemia, unspecified; E11.9 Type 2 diabetes mellitus without complications; Z79.84 Long term (current) use of oral hypoglycemic drugs; Z79.82 Long term (current) use of aspirin
CPT/HCPCS: 73030; 99283; A9270

== ENCOUNTER 2017-10-11 16:08 | Outpatient (CLI) | payer MEDICARE ==
--- NOTE | 2017-10-12 12:55 | Mammography Report ---
DIGITAL SCREENING MAMMOGRAM: 10/11/2017 CLINICAL INDICATION: A 77-year-old for screening. COMPARISON: 09/23, 07/19, 11/13. TECHNIQUE: Routine CC and MLO projections were obtained of the breasts. FINDINGS: The breasts demonstrate scattered fibroglandular densities bilaterally. Coarse and punctate, typically benign calcifications are present. No suspicious masses, clustered microcalcifications, or regions of architectural distortion are identified. IMPRESSION: BENIGN FINDINGS. RECOMMENDATION: Routine annual screening unless otherwise clinically indicated. BIRADS CATEGORY 2 - benign findings. STANDARD QUALIFYING STATEMENTS: 1. This examination was reviewed with the aid of Computer-Aided Detection (CAD). 2. A negative or benign imaging report should not delay biopsy if clinically suspicious findings are present. Consider surgical consultation if warranted. More than 5% of cancers are not identified by imaging. 3. Dense breasts may obscure an underlying neoplasm. TD: 10/12/2017 12:54
== END 2017-10-11 16:09 | disposition home or self-care (01) ==
LOC: DI.N 16:08
PROVIDERS: ATTEND Internal Medicine
DX: Z12.31 Encounter for screening mammogram for malignant neoplasm of breast (principal)
CPT/HCPCS: 77067

== ENCOUNTER 2019-03-13 11:18 | Outpatient (CLI) | payer MEDICARE ==
--- NOTE | 2019-03-14 09:04 | Mammography Report ---
Reason: SCREENING MAMMO Procedure Date: 03/13/2019 Accession Number: [id number] / [id number] Procedure: MGN - Screening Mammo Dig Bilat CPT Code: FULL RESULT: EXAM: Screening Mammo Dig Bilat DATE: 03/13/2019 11:50 AM CLINICAL HISTORY: Screening encounter. TECHNIQUE: (B) - Bilateral CC and MLO views were obtained. COMPARISON: 10/11/2017 through 07/18/2012. PARENCHYMAL PATTERN: (A) - The breast(s) demonstrate(s) scattered fibroglandular densities. FINDINGS: There are typically benign coarse and typically benign large rodlike calcifications. There are no suspicious masses, calcifications, or areas of distortion. IMPRESSION: Benign findings. BI-RADS category 2. RECOMMENDATION: (ANNUAL) - Recommend routine annual screening mammography. BI-RADS CATEGORY: (2) - Benign Findings. STANDARD QUALIFYING STATEMENTS: 1. This examination was not reviewed with the aid of Computer-Aided Detection (CAD). 2. A negative or benign imaging report should not preclude biopsy if clinically suspicious findings are present. 3. Dense breasts may obscure an underlying neoplasm. 4. This examination was reviewed without the aid of 3D breast imaging (tomosynthesis).
== END 2019-03-13 11:19 | disposition home or self-care (01) ==
LOC: DI.N 11:18
PROVIDERS: ATTEND Internal Medicine
DX: Z12.31 Encounter for screening mammogram for malignant neoplasm of breast (principal)
CPT/HCPCS: 77067

== ENCOUNTER 2019-03-20 14:05 | Outpatient (CLI) | payer MEDICARE ==
--- NOTE | 2019-03-21 08:36 | DEXA Report ---
Reason: DISORDER OF BONE, MENOPAUSAL AND FEMALE CL Procedure Date: 03/20/2019 Accession Number: [id number] / [id number] Procedure: DEX - Dexa Spine and/or Hip CPT Code: FULL RESULT: EXAM: Dexa Spine and/or Hip DATE: 03/20/2019 2:35 PM CLINICAL HISTORY: DISORDER OF BONE, MENOPAUSAL AND FEMALE CL TECHNIQUE: Dual energy x-ray absorptiometry (DXA) was performed on a [employer] System. Regions measured are the AP Spine, femoral neck, and if needed forearm. COMPARISON: None. In accordance with the International Society for Clinical Densitometry (ISCD) guidelines, data from previous exams may be reanalyzed using current recommendations and techniques. This is done to allow a more accurate basis for comparison with the current study. FINDINGS: The data for the lumbar spine is as follows: BMD (g/cm/cm) T-SCORE Z-SCORE REGION L1 1.259 1.1 2.1 L2 1.711 4.3 5.3 L3 excluded L4 1.662 3.8 4.9 TOTAL 1.551 3.2 4.2 NOTE: All evaluable vertebrae are used for classification The data for the hip is as follows: BMD (g/cm/cm) T-SCORE Z-SCORE REGION Neck 0.851 -1.3 0.3 TOTAL 1.007 0.0 1.4 NOTE: The femoral neck or total proximal femur, whichever is lowest, is used for classification. IMPRESSION: THE WHO CLASSIFICATION BASED ON THE INTERNATIONAL REFERENCE STANDARD IS OSTEOPENIA. THE FRACTURE RISK IS INCREASED. RECOMMENDATION: Patients with diagnosis of osteoporosis or osteopenia should have regular bone mineral density assessment. For those eligible for Medicare, routine testing is allowed once every 2 years. Testing frequency can be increased for patients who have rapidly progressing disease or for those who are receiving medical therapy to restore bone mass. COMMENT: World Health Organization (WHO) definitions for osteoporosis and osteopenia: NORMAL BMD: T-score at -1.0 or higher, fracture risk is low OSTEOPENIA BMD: T-score between -1.0 and -2.5, fracture risk is increased. OSTEOPOROSIS BMD: T-score at -2.5 or lower, fracture risk is high. National Osteoporosis Foundation recommends: 1. Obtain adequate dietary calcium (at least 1200 mg per day) and vitamin D (400-800 international units per day). 2. Participate, as appropriate, in regular weightbearing and muscle-strengthening exercise. 3. Avoid tobacco use and reduce alcohol and caffeine intake. 4. For more detailed information see the website at www.NOF.org.
== END 2019-03-20 14:06 | disposition home or self-care (01) ==
LOC: DI 14:05
PROVIDERS: ATTEND Internal Medicine
DX: M85.88 Other specified disorders of bone density and structure, other site (principal)
CPT/HCPCS: 77080

== ENCOUNTER 2021-05-28 15:13 | Outpatient (CLI) | payer MEDICARE ==
--- NOTE | 2021-06-02 19:32 | XRAY Report ---
PROCEDURE: Knee 2 View BILAT INDICATIONS: ARTHRITIS TECHNIQUE: 2 views of the left and right knee(s) were acquired. COMPARISON: None. FINDINGS: Bones: Right knee: There is severe medial compartment joint space loss and medial subluxation of the femur and tibia. There is dystrophic prominent marginal spur formation along the medial and lateral compartments. There is flattening of the medial femoral condyle. Prominent patellofemoral compartment spur formation. Subcortical cysts are seen in the tibial plateau. Left knee: Left knee arthroplasty components are in place. There is a lucency medial and distal to th e stem of the tibial component. Joint alignment remains normal. Soft tissues: Small right and trace left knee joint effusion. No suspicious soft tissue calcificatio ns. IMPRESSION: 1. Severe right knee osteoarthritic changes with subluxation. 2. Circumscribed lucency along the distal aspect of the left tibial prosthetic component. Correlate c linically. This can be an indication of loosening. Reviewed by: Marita Rinaldi MD on 06/02/2021 7:30 PM PDT Approved by: Marita Rinaldi MD on 06/02/2021 7:30 PM PDT Station ID: [id number]
== END 2021-05-28 15:14 | disposition home or self-care (01) ==
LOC: DI.N 15:13
PROVIDERS: ATTEND Internal Medicine
DX: M17.0 Bilateral primary osteoarthritis of knee (principal); R93.6 Abnormal findings on diagnostic imaging of limbs

== ENCOUNTER 2021-10-14 16:50 | Outpatient (CLI) | payer MEDICARE | END 2021-10-14 23:59 | disposition short-term general hospital (02) | LOC: EMS 16:50 | DX: M25.561 Pain in right knee (principal); R51.9 Headache, unspecified; W19.XXXA Unspecified fall, initial encounter | CPT/HCPCS: A0425; A0429 ==

== ENCOUNTER 2022-01-19 13:20 | Outpatient (CLI) | payer MEDICARE ==
--- NOTE | 2022-01-19 14:33 | Ultrasound Report ---
PROCEDURE: Duplex Ext Veins Right INDICATIONS: LE PAIN TECHNIQUE: Real-time imaging, as well as color and pulse Doppler interrogation, were performed of the lower extr emity deep veins from the inguinal ligament to the popliteal fossa. COMPARISON: None. FINDINGS: There is partially occlusive thrombus in the right popliteal vein isn't fully occlusive thr ombus in the right gastrocnemic vein. Remaining deep venous system in the right lower extremity minal rison patent without evidence of intraluminal thrombus. IMPRESSION: Partially occlusive thrombus in the right popliteal vein and fully occlusive thrombus in right gastrocnemic vein. Reviewed by: Hitesh Hagen MD on 01/19/2022 2:31 PM PDT Approved by: Hitesh Hagen MD on 01/19/2022 2:31 PM PDT Station ID: [id number]
== END 2022-01-19 13:21 | disposition home or self-care (01) ==
LOC: DI 13:20
PROVIDERS: ATTEND Internal Medicine
DX: I82.431 Acute embolism and thrombosis of right popliteal vein (principal); I82.461 Acute embolism and thrombosis of right calf muscular vein

== ENCOUNTER 2022-08-23 10:43 | Outpatient (CLI) | payer MEDICARE ==
--- NOTE | 2022-08-24 11:52 | Mammography Report ---
BILATERAL DIGITAL SCREENING MAMMOGRAM 3D/2D: 08/23/2022 CLINICAL: Routine screening. Comparison is made to exams dated: 03/13/2019 mammogram, 10/11/2017 mammogram, and 09/09/2015 mammogram - [facility]. There are scattered areas of fibroglandular density in both breasts (category b / 25%-50% glandular t issue). There are benign calcifications in both breasts. No significant masses, calcifications, or other findings are seen in either breast. There has been no significant interval change. IMPRESSION: BENIGN There is no mammographic evidence of malignancy. A 1 year screening mammogram is recommended. Based on the Tyrer Cuzick model (a risk assessment model) the patients lifetime risk is 0.4% and her 10 year risk is 0.0%. According to the ACR, ACS, and NCCN guidelines, an annual breast MRI exam william g with mammogram is recommended if the patients lifetime risk is 20% or greater. This exam was interpreted at Station ID: [id number]. NOTE: For mammograms, a report in lay terms will be sent to the patient. Approximately 15% of breast malignancies will not be visualized mammographically. In the management of a palpable breast mass, a negative mammogram must not discourage biopsy of a clinically suspicious lesion. Electronically Signed By: Sridhra livingston/jessie:08/23/2022 16:36:57 ACR BI-RADS Category 2: Benign Finding(s) 3342F PARENCHYMAL PATTERN: (A) - The breast(s) demonstrate(s) scattered fibroglandular densities. BI-RADS CATEGORY: (2) - 2 RECOMMENDATION: (ANNUAL) - Recommend routine annual screening mammography. [id number] 1 year screening LATERALITY: (B)
== END 2022-08-23 10:44 | disposition home or self-care (01) ==
LOC: DI 10:43
PROVIDERS: ATTEND Internal Medicine
DX: Z12.31 Encounter for screening mammogram for malignant neoplasm of breast (principal)

== ENCOUNTER 2022-08-23 10:43 | Outpatient (CLI) | payer MEDICARE ==
--- NOTE | 2022-08-23 12:28 | DEXA Report ---
PROCEDURE: Dexa Spine and/or Hip INDICATIONS: POST MENOPAUSAL TECHNIQUE: Dual energy x-ray absorptiometry (DXA) was performed on a [employer] System. Regions measur ed are the AP Spine, femoral neck, and if needed forearm. COMPARISON: DEXA, 03/20/2019. FINDINGS: Lumbar Spine: Bone Mineral Density 1.578 g/cm/cm,T score 3.3, normal Left Femoral Neck: Bone Mineral Density 0.800 g/cm/cm, T score -1.7, osteopenia. Left Hip: Bone Mineral Density 1.065 g/cm/cm,T score 0.5, normal. (T score greater or equal to -1.0: NORMAL) (T score from -1.1 to -2.4: OSTEOPENIA) (T score less than or equal to -2.5 to: OSTEOPOROSIS) Impression: Based on WHO criteria, the patient has osteopenia. Compared to the last exam dated , the ruth ent's bone mineral density in left hip has increased by 5.8%. Her mineral density in lumbar spine is probably unchanged although direct comparison cannot be made because of different technique. Patients with diagnosis of osteoporosis or osteopenia should have regular bone mineral density assess ment. For those eligible for Medicare, routine testing is allowed once every 2 years. Testing frequ ency can be increased for patients who have rapidly progressing disease or for those who are receivin g medical therapy to restore bone mass. Reviewed by: Watson Glasgow MD on 08/23/2022 11:26 AM [facility] Approved by: Watson Glasgow MD on 08/23/2022 11:26 AM [facility] Station ID: [id number]
== END 2022-08-23 10:44 | disposition home or self-care (01) ==
LOC: DI 10:43
PROVIDERS: ATTEND Internal Medicine
DX: M85.88 Other specified disorders of bone density and structure, other site (principal)

== ENCOUNTER 2024-03-19 10:46 | Outpatient (CLI) | payer MEDICARE ==
--- NOTE | 2024-03-20 07:59 | Mammography Report ---
BILATERAL DIGITAL SCREENING MAMMOGRAM 3D/2D: 03/19/2024 CLINICAL: Routine screening. Comparison is made to exams dated: 08/23/2022 mammogram, 03/13/2019 mammogram, 10/11/2017 mammogram, 2015 mammogram, 08/02/2012 mammogram, and 07/18/2012 mammogram - [facility]. There are scattered areas of fibroglandular density in both breasts (category b / 25%-50% glandular t issue). There are benign calcifications in both breasts. No significant masses, calcifications, or other findings are seen in either breast. There has been no significant interval change. IMPRESSION: BENIGN There is no mammographic evidence of malignancy. A 1 year screening mammogram is recommended. Based on the Tyrer Cuzick model (a risk assessment model) the patient's lifetime risk is 0.1% and her 10 year risk is 0.0%. According to the ACR, ACS, and NCCN guidelines, an annual breast MRI exam william g with mammogram is recommended if the patient's lifetime risk is 20% or greater. This exam was interpreted at Station ID: [id number]. NOTE: For mammograms, a report in lay terms will be sent to the patient. Approximately 15% of breast malignancies will not be visualized mammographically. In the management of a palpable breast mass, a negative mammogram must not discourage biopsy of a clinically suspicious lesion. Electronically Signed By: Marita [email or web address]/[email or web address]:03/19/2024 12:42:18 letter sent: No_Letter ACR BI-RADS Category 2: Benign Finding(s) 3342F PARENCHYMAL PATTERN: (A) - The breast(s) demonstrate(s) scattered fibroglandular densities. BI-RADS CATEGORY: (2) - 2 RECOMMENDATION: (ANNUAL) - Recommend routine annual screening mammography. [id number] 1 year screening LATERALITY: (B)
== END 2024-03-19 10:47 | disposition home or self-care (01) ==
LOC: DI.N 10:46
PROVIDERS: ATTEND Internal Medicine
DX: Z12.31 Encounter for screening mammogram for malignant neoplasm of breast (principal); R92.323 Mammographic fibroglandular density, bilateral breasts